=== PATIENT | female | born 1950 | race Two or more races ===

== ENCOUNTER 2020-02-12 19:52 | Emergency (ER) | payer MEDICARE, OTHER ==
--- NOTE | 2020-02-12 19:58 | EDM.PDOC ---
ED HPI GENERAL MEDICAL PROBLEM - General Stated Complaint: POSSIBLE KIDNEY PROBLEM Time Seen by Provider: 02/12/20 19:56 Source of Information: Reports: Patient History Limitations: Reports: No Limitations - History of Present Illness INITIAL COMMENTS - FREE TEXT/NARRATIVE: HISTORY AND PHYSICAL: History of present illness: Patient is a 69-year-old female who presents to the emergency room with complaints of dysuria, low back pain, epigastric pain with eating and drinking x3 days. She states her symptoms started with having epigastric pain after eating and drinking that would last anywhere from 30 minutes to 1 hour. She did notice some dysuria, was trying to increase her fluids but this was causing her further discomfort. Today she started to develop some pain in her low back which she believes is related to a urinary tract infection. Patient denies any fever, chills, headache, change in vision, syncope or near syncope. Denies any chest pain, back pain, shortness of breath or cough. Denies any nausea, vomiting , diarrhea, or constipation. Has not noted any blood in urine or stool. Review of systems: As per history of present illness and below otherwise all systems reviewed and negative. Past medical history: As per history of present illness and as reviewed below otherwise noncontributory. Surgical history: As per history of present illness and as reviewed below otherwise noncontributory. Social history: See social history for further information Family history: As per history of present illness and as reviewed below otherwise noncontributory. Physical exam: General: Well-developed and well-nourished 69-year-old female. Alert and oriented. Nontoxic-appearing and in no acute distress. HEENT: Atraumatic, normocephalic, pupils equal and reactive bilaterally, negative for conjunctival pallor or scleral icterus, mucous membranes moist, trachea midline. No drooling or trismus noted. No meningeal signs. No hot potato voice noted. Lungs: Clear to auscultation, breath sounds equal bilaterally, chest nontender. Heart: S1S2, regular rate and rhythm without overt murmur Abdomen: Soft, nondistended, nontender. Negative for masses or hepatosplenomegaly. Negative for costovertebral tenderness. Pelvis: Stable nontender. Skin: Intact, warm, dry. No lesions or rashes noted. Extremities: Atraumatic, moves all extremities per self without difficulty or deficits, negative for cords or calf pain. Neurovascular unremarkable. Neuro: Awake, alert, oriented. Cranial nerves II through XII unremarkable. Cerebellum unremarkable. Motor and sensory unremarkable throughout. Exam nonfocal. Notes: Patient's epigastric pain is only prevalent after eating. She states she currently does not have any pain or tenderness upon my evaluation. Does sound like she may have a GERD or ulcer developing. Her lab work is otherwise unremarkable. I will prescribe some Carafate and encourage her to follow-up with the general surgeon. Supportive care measures were reviewed and discussed. Voices understanding and is agreeable to plan of care. Denies any further questions or concerns at this time. Diagnostics: CBC, CMP, UA Therapeutics: IV fluid, Pepcid, Carafate Prescription: Carafate Impression: Gastric pain Plan: 1. Start taking a Prilosec or [id number] Reflux medication once daily. You can take the Carafate hour before meals and then again before bedtime. This medication should help with the abdominal pain you are experiencing with eating and drinking. I would like you to follow-up with a general surgeon as you may need this medication continued and or further evaluation for your symptoms. 2. [place] diet over the next 2 to 3 days, advance as tolerated. Make sure you are drinking plenty of fluids to prevent dehydration. He can take Tylenol as needed for pain. 3. Return to the ER as needed and as discussed. Definitive disposition and diagnosis as appropriate pending reevaluation and review of above. epigastric Pain Score (Numeric/FACES): 6 - Related Data Allergies Allergy/AdvReac Type Severity Reaction Status Date / Time No Known Allergies Allergy Verified 02/12/20 20:18 Home Meds: Home Meds Lovastatin 20 mg PO QID 02/12/20 [History] Meloxicam 7.5 mg PO QID 02/12/20 [History] Sucralfate [Carafate] 1 gm PO QIDACANDBED #50 cup 02/12/20 [Rx] metFORMIN [Glucophage] 850 mg PO BIDMEALS 02/12/20 [History] ED ROS GENERAL - Review of Systems Review Of Systems: Comprehensive ROS is negative, except as noted in HPI. ED EXAM, RENAL/ - Physical Exam Exam: See Below (See dictation) Course - Vital Signs Last Recorded V/S: Last Vital Signs Temp 97.0 F 02/12/20 20:15 Pulse 70 02/12/20 20:15 Resp 16 02/12/20 20:15 BP 137/59 L 02/12/20 20:15 Pulse Ox 97 02/12/20 20:15 - Orders/Labs/Meds Orders: Active Orders 24 hr Category Date Time Status Sodium Chloride 0.9% [Normal Saline] 1,000 ml Med 02/12/20 20:07 Active IV STAT Medication Orders Sodium Chloride (Normal Saline) 1,000 mls @ 999 mls/hr IV STAT ONE Stop: 02/12/20 21:07 Last Admin: 02/12/20 20:22 Dose: 999 mls/hr Labs: Laboratory Tests 02/12/20 02/12/20 02/12/20 Range/Units 20:00 20:15 20:15 WBC 11.63 H (4.0-11.0) K/uL RBC 4.19 L (4.30-5.90) M/uL Hgb 13.2 (12.0-16.0) g/dL Hct 39.8 (36.0-46.0) % MCV 95.0 (80.0-98.0) fL MCH 31.5 (27.0-32.0) pg MCHC 33.2 (31.0-37.0) g/dL RDW Std Deviation 50.9 (28.0-62.0) fl RDW Coeff of Dwight 15 (11.0-15.0) % Plt Count 329 (150-400) K/uL MPV 11.00 (7.40-12.00) fL Neut % (Auto) 41.5 L (48.0-80.0) % Lymph % (Auto) 45.7 H (16.0-40.0) % [place] % (Auto) 10.2 (0.0-15.0) % Eos % (Auto) 2.3 (0.0-7.0) % Baso % (Auto) 0.3 (0.0-1.5) % Neut # (Auto) 4.8 (1.4-5.7) K/uL Lymph # (Auto) 5.3 H (0.6-2.4) K/uL [place] # (Auto) 1.2 H (0.0-0.8) K/uL Eos # (Auto) 0.3 (0.0-0.7) K/uL Baso # (Auto) 0.0 (0.0-0.1) K/uL Nucleated RBC % 0.0 /100WBC Nucleated RBCs # 0 K/uL Sodium 131 L (136-145) mmol/L Potassium 4.1 (3.5-5.1) mmol/L Chloride 97 L (98-107) mmol/L Carbon Dioxide 26.7 (21.0-32.0) mmol/L BUN 17 (7.0-18.0) mg/dL Creatinine 0.8 (0.6-1.0) mg/dL Est Cr Clr Drug Dosing 49.01 mL/min Estimated GFR (MDRD) > 60.0 ml/min Glucose 121 H (74-106) mg/dL Calcium 8.5 (8.5-10.1) mg/dL Total Bilirubin 0.1 L (0.2-1.0) mg/dL AST 17 (15-37) IU/L ALT 21 (14-63) IU/L Alkaline Phosphatase 68 (46-116) U/L Total Protein 7.1 (6.4-8.2) g/dL Albumin 3.4 (3.4-5.0) g/dL Globulin 3.7 (2.6-4.0) g/dL Albumin/Globulin Ratio 0.9 (0.9-1.6) Urine Color YELLOW Urine Appearance SLT CLOUDY Urine pH 7.0 (5.0-8.0) Ur Specific [place] 1.015 (1.001-1.035) Urine Protein NEGATIVE (NEGATIVE) mg/dL Urine Glucose (UA) NEGATIVE (NEGATIVE) mg/dL Urine Ketones NEGATIVE (NEGATIVE) mg/dL Urine Occult Blood TRACE-INTACT H (NEGATIVE) Urine Nitrite NEGATIVE (NEGATIVE) Urine Bilirubin NEGATIVE (NEGATIVE) Urine Urobilinogen 0.2 (<2.0) EU/dL Ur Leukocyte Esterase NEGATIVE (NEGATIVE) Urine RBC 0-2 (0-2/HPF) Urine WBC 0-1 (0-5/HPF) Ur Epithelial Cells OCCASIONAL (NONE-FEW) Urine Bacteria RARE (NEGATIVE) Meds: Medications Generic Name Dose Route Start Last Admin Trade Name Freq PRN Reason Stop Dose Admin Sodium Chloride 1,000 mls @ 999 mls/hr 02/12/20 20:07 02/12/20 20:22 Normal Saline IV 02/12/20 21:07 999 mls/hr STAT ONE Administration Discontinued Medications Generic Name Dose Route Start Last Admin Trade Name Maldonado PRN Reason Stop Dose Admin Al Hydroxide/Mg Hydroxide 15 0 ml 02/12/20 20:54 ml/ Metoclopramide HCl 5 mg/ PO 02/12/20 20:55 Lidocaine HCl 5 ml ONETIME ONE Famotidine 20 mg 02/12/20 20:07 02/12/20 20:22 Pepcid IVPUSH 02/12/20 20:08 20 mg ONETIME ONE Administration Departure - Departure Time of Disposition: 21:07 Disposition: Home, Self-Care 01 Clinical Impression: Epigastric pain - Discharge Information Prescriptions: Sucralfate [Carafate] 1 gm PO QIDACANDBED #50 cup Instructions: Abdominal Pain, Adult, [id number] Additional Instructions: The following information is given to patients seen in the emergency department who are being discharged to home. This information is to outline your options for follow-up care. We provide all patients seen in our emergency department with a follow-up referral. The need for follow-up, as well as the timing and circumstances, are variable depending upon the specifics of your emergency department visit. If you don't have a primary care physician on staff, we will provide you with a referral. We always advise you to contact your personal physician following an emergency department visit to inform them of the circumstance of the visit and for follow-up with them and/or the need for any referrals to a consulting specialist. The emergency department will also refer you to a specialist when appropriate. This referral assures that you have the opportunity for follow-up care with a specialist. All of these measure are taken in an effort to provide you with optimal care, which includes your follow-up. Under all circumstances we always encourage you to contact your private physician who remains a resource for coordinating your care. When calling for follow-up care, please make the office aware that this follow-up is from your recent emergency room visit. If for any reason you are refused follow-up, please contact the [facility] Emergency Department at and asked to speak to the emergency department charge nurse. [facility] [address] [place] [address] [facility] [address] [place] [address] 1. Start taking a Prilosec or larz-ctr-gakgakt Reflux medication once daily. You can take the Carafate hour before meals and then again before bedtime. This medication should help with the abdominal pain you are experiencing with eating and drinking. I would like you to follow-up with a general surgeon as you may need this medication continued and or further evaluation for your symptoms. 2. [place] diet over the next 2 to 3 days, advance as tolerated. Make sure you are drinking plenty of fluids to prevent dehydration. He can take Tylenol as needed for pain. 3. Return to the ER as needed and as discussed. Sepsis Event Note - Focused Exam Vital Signs: Vital Signs Temp Pulse Resp BP Pulse Ox 02/12/20 20:15 97.0 F 70 16 137/59 L 97 Date Exam was Performed: 02/12/20 Time Exam was Performed: 21:05 - My Orders Last 24 Hours: My Active Orders 02/12/20 20:07 Sodium Chloride 0.9% [Normal Saline] 1,000 ml IV STAT - Assessment/Plan Last 24 Hours: My Active Orders 02/12/20 20:07 Sodium Chloride 0.9% [Normal Saline] 1,000 ml IV STAT
[2020-02-12] MEDS ORDERED: Sodium Chloride 0.9% 1,000 ML IV ONE (20:07)
[2020-02-12] MEDS ORDERED: Famotidine 20 MG/2 ML SDV IVPUSH ONE (20:07)
[2020-02-12 20:46] LABS: BLOOD UREA NITROGEN,BUN 17 mg/dL (7.0-18.0); CARBON DIOXIDE,CO2 26.7 mmol/L (21.0-32.0); CHLORIDE,CL 97 mmol/L (98-107); GLUCOSE RANDOM 121 mg/dL (74-106); POTASSIUM,K 4.1 mmol/L (3.5-5.1); SODIUM,NA 131 mmol/L (136-145)
[2020-02-12] MEDS ORDERED: Alum Hydrox/Mag Hydrox/Simeth 15 ML, Metoclopramide 5 MG, Lidocaine 2% 5 ML PO ONE ×3 (20:54)
== END 2020-02-12 21:20 | disposition home or self-care (01) ==
LOC: MW.ED 19:52
DX: R10.13 Epigastric pain (principal); Z79.899 Other long term (current) drug therapy
CPT/HCPCS: 36415; 80053; 81001; 85025; 96361; 96374; 99283; A9270; J3490; J7030

== ENCOUNTER 2020-10-03 15:37 | Emergency (ER) | payer MEDICARE, OTHER ==
[2020-10-03] MEDS ORDERED: Sodium Chloride 0.9% 1,000 ML IV ONE (16:33)
[2020-10-03] MEDS ORDERED: Alum Hydrox/Mag Hydrox/Simeth 15 ML, Lidocaine 2% 5 ML PO ONE ×2 (16:33)
[2020-10-03] MEDS ORDERED: Famotidine 20 MG/2 ML SDV IVPUSH ONE (16:33)
--- NOTE | 2020-10-03 16:33 | EDM.PDOC ---
ED HPI GENERAL MEDICAL PROBLEM - General Chief Complaint: Abdominal Pain Stated Complaint: PAIN IN STOMACHE Time Seen by Provider: 10/03/20 15:48 Source of Information: Reports: Patient History Limitations: Reports: No Limitations - History of Present Illness INITIAL COMMENTS - FREE TEXT/NARRATIVE: Patient is a 70-year-old female who presented today for abdominal pain. Patient states he had a burning sensation in her abdomen in the epigastric region that is not radiating. Pain is made worse with eating. Not made the pain better. Patient not any nausea vomiting diarrhea. Patient denies any recent travels or eating new foods. Patient had this pain a few months ago and was seen in the ER for. center abdomen Pain Score (Numeric/FACES): 10 - Related Data Allergies Allergy/AdvReac Type Severity Reaction Status Date / Time No Known Allergies Allergy Verified 02/12/20 20:18 Home Meds: Home Meds Chlorthalidone 1 tab PO DAILY 10/03/20 [History] Esomeprazole [NexIUM] 20 mg PO DAILY 10/03/20 [History] lisinopriL [Prinivil] 10 mg PO DAILY 10/03/20 [History] Past Medical History Cardiovascular History: Reports: High Cholesterol, Hypertension Gastrointestinal History: Reports: GERD Other Gastrointestinal History: gall stones Genitourinary History: Reports: Other (See Below) Other Genitourinary History: HX OF KIDNEY PROBLEMS [place] History: Reports: Endocrine/Metabolic History: Reports: Diabetes, Type I Other Endocrine/Metabolic History: states unsure of type 1 or 2- does not take medication - Infectious Disease History Infectious Disease History: Reports: Chicken Pox, Measles, Mumps - Past Surgical History Female Surgical History: Reports: Tubal Ligation Social & Family History - Family History Family Medical History: No Pertinent Family History - Caffeine Use Caffeine Use: Reports: None - Recreational Drug Use Recreational Drug Use: No ED ROS GENERAL - Review of Systems Review Of Systems: See Below Constitutional: Reports: No Symptoms HEENT: Reports: No Symptoms Respiratory: Reports: No Symptoms Cardiovascular: Reports: No Symptoms Endocrine: Reports: No Symptoms GI/Abdominal: Reports: Abdominal Pain : Reports: No Symptoms Musculoskeletal: Reports: No Symptoms Skin: Reports: No Symptoms Neurological: Reports: No Symptoms Psychiatric: Reports: No Symptoms Hematologic/Lymphatic: Reports: No Symptoms Immunologic: Reports: No Symptoms ED EXAM, GENERAL - Physical Exam Exam: See Below Exam Limited By: No Limitations General Appearance: Alert, WD/WN Respiratory/Chest: No Respiratory Distress, Lungs Clear, Normal Breath Sounds Cardiovascular: Regular Rate, Rhythm GI/Abdominal: Normal Bowel Sounds, Soft, Non-Tender Back Exam: Full Range of Motion Neurological: Alert, Oriented, CN II-XII Intact Course - Vital Signs Last Recorded V/S: Last Vital Signs Temp 97.6 F 10/03/20 16:16 Pulse 77 10/03/20 16:16 Resp 18 10/03/20 16:16 BP 145/38 H 10/03/20 16:16 Pulse Ox 99 10/03/20 16:16 - Orders/Labs/Meds Labs: Laboratory Tests 10/03/20 10/03/20 10/03/20 Range/Units 16:50 16:50 16:50 WBC 9.85 (4.0-11.0) K/uL RBC 4.61 (4.30-5.90) M/uL Hgb 14.3 (12.0-16.0) g/dL Hct 42.9 (36.0-46.0) % MCV 93.1 (80.0-98.0) fL MCH 31.0 (27.0-32.0) pg MCHC 33.3 (31.0-37.0) g/dL RDW Std Deviation 50.3 (28.0-62.0) fl RDW Coeff of Dwight 15 (11.0-15.0) % Plt Count 312 (150-400) K/uL MPV 11.10 (7.40-12.00) fL Neut % (Auto) 54.0 (48.0-80.0) % Lymph % (Auto) 35.8 (16.0-40.0) % [place] % (Auto) 8.1 (0.0-15.0) % Eos % (Auto) 1.9 (0.0-7.0) % Baso % (Auto) 0.2 (0.0-1.5) % Neut # (Auto) 5.3 (1.4-5.7) K/uL Lymph # (Auto) 3.5 H (0.6-2.4) K/uL [place] # (Auto) 0.8 (0.0-0.8) K/uL Eos # (Auto) 0.2 (0.0-0.7) K/uL Baso # (Auto) 0.0 (0.0-0.1) K/uL Nucleated RBC % 0.0 /100WBC Nucleated RBCs # 0 K/uL Lactate 1.2 (0.20-2.00) mmol/L Sodium 137 (136-145) mmol/L Potassium 3.1 L (3.5-5.1) mmol/L Chloride 100 (98-107) mmol/L Carbon Dioxide 25.1 (21.0-32.0) mmol/L BUN 20 H (7.0-18.0) mg/dL Creatinine 0.8 (0.6-1.0) mg/dL Est Cr Clr Drug Dosing 48.34 mL/min Estimated GFR (MDRD) > 60.0 ml/min Glucose 114 H (74-106) mg/dL Calcium 9.7 (8.5-10.1) mg/dL Phosphorus 3.5 (2.6-4.7) mg/dL Magnesium 1.8 (1.8-2.4) mg/dL Total Bilirubin 0.2 (0.2-1.0) mg/dL AST 19 (15-37) IU/L ALT 22 (14-63) IU/L Alkaline Phosphatase 71 (46-116) U/L Total Protein 8.0 (6.4-8.2) g/dL Albumin 3.8 (3.4-5.0) g/dL Globulin 4.2 H (2.6-4.0) g/dL Albumin/Globulin Ratio 0.9 (0.9-1.6) Lipase 164 (73-393) U/L Meds: Medications Discontinued Medications Generic Name Dose Route Start Last Admin Trade Name Freq PRN Reason Stop Dose Admin Al Hydroxide/Mg Hydroxide 15 0 ml 10/03/20 16:33 10/03/20 16:47 ml/ Lidocaine HCl 5 ml PO 10/03/20 16:34 1 each ONETIME ONE Administration Famotidine 20 mg 10/03/20 16:33 10/03/20 16:47 Pepcid IVPUSH 10/03/20 16:34 20 mg ONETIME ONE Administration Sodium Chloride 1,000 mls @ 999 mls/hr 10/03/20 16:33 10/03/20 16:47 Normal Saline IV 10/03/20 17:33 999 mls/hr .BOLUS ONE Administration Iopamidol 100 ml 10/03/20 17:59 Isovue Multipack-370 (76%) IVPUSH 10/03/20 18:00 ONETIME STA Departure - Departure Time of Disposition: 18:56 Disposition: Home, Self-Care 01 Condition: Good Clinical Impression: Cholelithiases - Discharge Information *PRESCRIPTION DRUG MONITORING PROGRAM REVIEWED*: Not Applicable *COPY OF PRESCRIPTION DRUG MONITORING REPORT IN PATIENT LUC: Not Applicable Instructions: Cholelithiasis, [id number], Gallbladder Eating Plan Referrals: Alyssa Zurita [facility] [Primary Care Provider] - Forms: ED Department Discharge Additional Instructions: The following information is given to patients seen in the emergency department who are being discharged to home. This information is to outline your options for follow-up care. We provide all patients seen in our emergency department with a follow-up referral. The need for follow-up, as well as the timing and circumstances, are variable depending upon the specifics of your emergency department visit. If you don't have a primary care physician on staff, we will provide you with a referral. We always advise you to contact your personal physician following an emergency department visit to inform them of the circumstance of the visit and for follow-up with them and/or the need for any referrals to a consulting specialist. The emergency department will also refer you to a specialist when appropriate. This referral assures that you have the opportunity for follow-up care with a specialist. All of these measure are taken in an effort to provide you with optimal care, which includes your follow-up. Under all circumstances we always encourage you to contact your private physician who remains a resource for coordinating your care. When calling for follow-up care, please make the office aware that this follow-up is from your recent emergency room visit. If for any reason you are refused follow-up, please contact the [facility] Emergency Department at and asked to speak to the emergency department charge nurse. Please follow up with your primary care physician. If you do not have a primary care physician, see below: [facility] - General Surgery Professional Building [address] [place] [address], [address] [place] [address] Follow-up with general surgery. Please refer to the handout for possible foods to eat to help out in pain control. We will refer you to general surgery if you have any increased pain unable to eat or drink please return to the ED Sepsis Event Note (ED) - Evaluation Sepsis Screening Result: No Definite Risk - Focused Exam Vital Signs: Vital Signs Temp Pulse Resp BP Pulse Ox 10/03/20 16:16 97.6 F 77 18 145/38 H 99 - Assessment/Plan Assessment:: Pt is a 70-year-old female today for abdominal pain. Patient has some epigastric tenderness will obtain labs and likely CT and reassess.
[2020-10-03 17:30] LABS: BLOOD UREA NITROGEN,BUN 20 mg/dL (7.0-18.0); CARBON DIOXIDE,CO2 25.1 mmol/L (21.0-32.0); CHLORIDE,CL 100 mmol/L (98-107); GLUCOSE RANDOM 114 mg/dL (74-106); LIPASE 164 U/L (73-393); POTASSIUM,K 3.1 mmol/L (3.5-5.1); SODIUM,NA 137 mmol/L (136-145)
[2020-10-03] MEDS ORDERED: Iopamidol 755 MG/ML 500 ML Multipack Bottle IVPUSH STA (17:59)
--- NOTE | 2020-10-03 18:47 | CT ---
INDICATION: Epigastric pain TECHNIQUE: Axial images were obtained from the diaphragm to the pubic symphysis. Reformats were obtained in the coronal and sagittal plane. IV Contrast: 100 cc Isovue 370 Oral Contrast: None COMPARISON: Abdomen and pelvis CT 02/22/2020 FINDINGS: Lower chest: Respiratory motion with areas of discoid atelectasis lung bases. Liver: Normal in contour with irregular area of enhancement within the right lobe of the liver which is indeterminate due to the single phase of enhancement as well as patient motion although grossly similar to the prior exam. Gallbladder and bile ducts: Mild gallbladder wall hyperenhancement, especially near the fundus. Spleen: Unremarkable. Normal in size without mass. Pancreas: Unremarkable. No mass or inflammation. Adrenal glands: Unremarkable. No nodules. Kidneys: Symmetric renal enhancement without hydronephrosis. Exophytic right renal cyst measuring 15 millimeters with other subcentimeter hypodense lesions which are too small for characterization. Left renal scarring. Vasculature: Atherosclerosis without abdominal aortic aneurysm. GI tract: No dilated loops of large or small intestine. Appendix unremarkable. Pelvis: Small amount of air within the bladder lumen. Bones: Degenerative disc disease lumbar spine. IMPRESSION: 1. No dilated bowel or localized inflammation. 2. No definite cholelithiasis seen by CT, however note is made of some hyperenhancement of the gallbladder. If there is pain localizing to this region, ultrasound may have improved characterization. 3. Indeterminate lesion within the right lobe of the liver, poorly defined secondary to some patient motion. Considering the motion, this is probably similar to the May examination. 4. Air within the bladder lumen. This can be seen with recent instrumentation or infection. 5. Other incidental findings as detailed above. Please note that all CT scans at this facility use dose modulation, iterative reconstruction, and/or weight-based dosing when appropriate to reduce radiation dose to as low as reasonably achievable. Dictated by Yash Lee MD @ Oct 03 2020 6:31PM Signed by Dr. Yash Lee @ Oct 03 2020 6:45PM
== END 2020-10-03 19:12 | disposition home or self-care (01) ==
LOC: MW.ED 15:37
DX: K80.20 Calculus of gallbladder without cholecystitis without obstruction (principal); I10 Essential (primary) hypertension; K21.9 Gastro-esophageal reflux disease without esophagitis; E10.9 Type 1 diabetes mellitus without complications; Z79.899 Other long term (current) drug therapy
CPT/HCPCS: 36415; 74177; 80053; 83605; 83690; 83735; 84100; 85025; 96374; 99284; A9270; J3490; J7030; 99283

== ENCOUNTER 2020-10-08 04:06 | Emergency (ER) | payer MEDICARE, OTHER ==
[2020-10-08] MEDS ORDERED: Pantoprazole 40 MG in Sodium Chloride 0.9% 10 ML IV ONE (04:36)
[2020-10-08] MEDS ORDERED: Sodium Chloride 0.9% 1,000 ML IV ONE (04:36)
[2020-10-08] MEDS ORDERED: Sodium Chloride 0.9% 2.5 ML Syringe FLUSH PRN (04:36)
[2020-10-08] MEDS ORDERED: Ketorolac 15 MG/ML SDV IVPUSH ONE (04:36)
[2020-10-08] MEDS ORDERED: Sodium Chloride 0.9% 10 ML Syringe FLUSH PRN (04:36)
[2020-10-08] MEDS ORDERED: Ondansetron 4 MG/2 ML SDV IVPUSH ONE (04:36)
[2020-10-08] MEDS ORDERED: HYDROmorphone 2 MG/ML Syringe IVPUSH ONE (04:39)
[2020-10-08] MEDS ORDERED: HYDROmorphone 2 MG/ML Syringe ONE (04:48)
[2020-10-08] MEDS ORDERED: Pantoprazole 40 MG Vial ONE (04:49)
[2020-10-08] MEDS ORDERED: Ondansetron 4 MG/2 ML SDV ONE (04:50)
[2020-10-08] MEDS ORDERED: Ketorolac 15 MG/ML SDV ONE (04:50)
[2020-10-08 05:23] LABS: BLOOD UREA NITROGEN,BUN 19 mg/dL (7.0-18.0); CARBON DIOXIDE,CO2 28.7 mmol/L (21.0-32.0); CHLORIDE,CL 99 mmol/L (98-107); GLUCOSE RANDOM 127 mg/dL (74-106); LIPASE 296 U/L (73-393); SODIUM,NA 138 mmol/L (136-145)
--- NOTE | 2020-10-08 06:12 | EDM.PDOC ---
ED HPI GENERAL MEDICAL PROBLEM - General Chief Complaint: Abdominal Pain Stated Complaint: GALL BLADDER PAIN Time Seen by Provider: 10/08/20 04:34 - History of Present Illness INITIAL COMMENTS - FREE TEXT/NARRATIVE: HISTORY AND PHYSICAL: History of present illness: This is a 70-year-old female with history significant for hypertension who presents ER today complaining of midepigastric and right upper quadrant abdominal pain that started approximately 4 AM. Patient reports that for dinner tonight she ate a chicken sandwich approximately at 5 PM without a difficulty. Patient reports she went to bed without any discomfort or pain and at approximately 4 the morning she was having discomfort in her midepigastric and right upper quadrant. Patient denies any recent fevers, shakes, chills, vomiting, diarrhea. Patient denies any dysuria, frequency, urgency, chest pain, shortness of breath. Review of systems: As per history of present illness and below otherwise all systems reviewed and negative. Past medical history: As per history of present illness and as reviewed below otherwise noncontributory. Surgical history: As per history of present illness and as reviewed below otherwise noncontributory. Social history: No reported history of drug or alcohol abuse. Family history: As per history of present illness and as reviewed below otherwise noncontributory. Physical exam: Constitutional: Patient is oriented to person, place, and time. Appears well- developed and well-nourished. No distress. HEENT: Moist mucous membranes, no jaundice Head: Normocephalic and atraumatic Eyes: Right eye exhibits no discharge. Left eye exhibits no discharge. No scleral icterus Neck: Normal range of motion. No tracheal deviation present. Cardiovascular: Normal rate and regular rhythm. Pulmonary: Effort normal, no respiratory distress. Abd: Soft, nondistended, no rebound/guarding, no psoas or obturator signs, no tenderness at Mcberney's point, no Simpson's sign. Pt does not present with an exam that would be consistent with an acute surgical abdomen at this time, tenderness palpation midepigastric area. Musculoskeletal: Normal range of motion Neurologic: Alert and oriented to person, place and time. Skin: [place], warm and dry. Psychiatric: Normal mood and affect. Behavior is normal. Judgment and thought content normal. Nursing note and vital signs have been reviewed This patient was seen and evaluated during the 2019 SARS-CoV-2 novel coronavirus pandemic period. Community viral transmission is ongoing at time of this encounter and the emergency department is operating under pandemic response procedures. Diagnostics: CBC, CMP, lipase all within normal limits except for slightly elevated WBC count. Therapeutics: Toradol, Zofran, Dilaudid 0.5 mg IV NSS x1 L Assessment and plan: This is a 62-year-old female with a history significant for hypertension who presents to the ER today complaining of similar pain from 2 days ago. Patient reports she was seen here 2 days ago for abdominal pain and was told that she had gallbladder problems and has an appointment on Friday to see Dr. Miguel. Patient presents ER today secondary to recurrence of the pain for the morning. Patient's ER work-up is been unremarkable. Patient's white count was elevated however after pain meds patient is currently pain-free and has absolutely no discomfort to palpation to her abdomen. Patient has been given Toradol Zofran and Dilaudid here in the ED and is currently pain-free. Patient feels very comfortable with being discharged at this time and following up as scheduled. Have discussed with the patient dietary restrictions for gallbladder disease. Reassessment at the time of disposition demonstrates that the patient is in no acute distress. The patient has remained stable throughout the entire ED visit and is without objective evidence for acute process requiring urgent intervention or hospitalization. The patient is stable for discharge, counseling is provided as documented above, discussed symptomatic treatment and specific conditions for return. I have spoken with the patient/caregiver and discussed todays findings, in addition to providing specific details for the plan of care. Questions are answered and there is agreement with the plan. October 08, 2020 7:20 PM: Phone call follow-up made. Patient reports she is feeling better. Has appointment tomorrow with her surgeon. Definitive disposition and diagnosis as appropriate pending reevaluation and review of above. abdominal pain Pain Score (Numeric/FACES): 10 - Related Data Allergies Allergy/AdvReac Type Severity Reaction Status Date / Time No Known Allergies Allergy Verified 10/08/20 04:16 Home Meds: Home Meds Chlorthalidone 1 tab PO DAILY 10/03/20 [History] Esomeprazole [NexIUM] 20 mg PO DAILY 10/03/20 [History] lisinopriL [Prinivil] 10 mg PO DAILY 10/03/20 [History] Past Medical History Cardiovascular History: Reports: High Cholesterol, Hypertension Gastrointestinal History: Reports: GERD Other Gastrointestinal History: gall stones Genitourinary History: Reports: Other (See Below) Other Genitourinary History: HX 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: Endocrine/Metabolic History: Reports: Diabetes, Type I Other Endocrine/Metabolic History: states unsure of type 1 or 2- does not take medication - Infectious Disease History Infectious Disease History: Reports: Chicken Pox, Measles, Mumps - Past Surgical History Female Surgical History: Reports: Tubal Ligation Social & Family History - Family History Family Medical History: No Pertinent Family History - Tobacco Use Tobacco Use Status *Q: Current Every Day Tobacco User Years of Tobacco use: 30 Packs/Tins Daily: 1 - Caffeine Use Caffeine Use: Reports: Coffee - Recreational Drug Use Recreational Drug Use: No ED ROS GENERAL - Review of Systems Review Of Systems: See Below ED EXAM, GENERAL - Physical Exam Exam: See Below Course - Vital Signs Last Recorded V/S: Last Vital Signs Temp 96.9 F 10/08/20 06:22 Pulse 67 10/08/20 06:22 Resp 17 10/08/20 06:22 BP 135/47 L 10/08/20 06:22 Pulse Ox 97 10/08/20 06:22 - Orders/Labs/Meds Orders: Active Orders 24 hr Category Date Time Status Saline Lock Insert [OM.PC] Stat Oth 10/08/20 04:36 Ordered Labs: Laboratory Tests 10/08/20 10/08/20 10/08/20 Range/Units 04:45 04:56 04:56 WBC 16.89 H (4.0-11.0) K/uL RBC 4.54 (4.30-5.90) M/uL Hgb 14.4 (12.0-16.0) g/dL Hct 41.6 (36.0-46.0) % MCV 91.6 (80.0-98.0) fL MCH 31.7 (27.0-32.0) pg MCHC 34.6 (31.0-37.0) g/dL RDW Std Deviation 48.7 (28.0-62.0) fl RDW Coeff of [place]ight 15 (11.0-15.0) % Plt Count 328 (150-400) K/uL MPV 11.10 (7.40-12.00) fL Neut % (Auto) 72.3 (48.0-80.0) % Lymph % (Auto) 19.7 (16.0-40.0) % [place] % (Auto) 7.3 (0.0-15.0) % Eos % (Auto) 0.5 (0.0-7.0) % Baso % (Auto) 0.2 (0.0-1.5) % Neut # (Auto) 12.2 H (1.4-5.7) K/uL Lymph # (Auto) 3.3 H (0.6-2.4) K/uL [place] # (Auto) 1.2 H (0.0-0.8) K/uL Eos # (Auto) 0.1 (0.0-0.7) K/uL Baso # (Auto) 0.0 (0.0-0.1) K/uL Nucleated RBC % 0.0 /100WBC Nucleated RBCs # 0 K/uL Sodium 138 (136-145) mmol/L Potassium 3.0 L (3.5-5.1) mmol/L Chloride 99 (98-107) mmol/L Carbon Dioxide 28.7 (21.0-32.0) mmol/L BUN 19 H (7.0-18.0) mg/dL Creatinine 0.8 (0.6-1.0) mg/dL Est Cr Clr Drug Dosing 48.34 mL/min Estimated GFR (MDRD) > 60.0 ml/min Glucose 127 H (74-106) mg/dL Calcium 9.5 (8.5-10.1) mg/dL Total Bilirubin 0.3 (0.2-1.0) mg/dL AST 17 (15-37) IU/L ALT 22 (14-63) IU/L Alkaline Phosphatase 69 (46-116) U/L Total Protein 7.7 (6.4-8.2) g/dL Albumin 3.7 (3.4-5.0) g/dL Globulin 4.0 (2.6-4.0) g/dL Albumin/Globulin Ratio 0.9 (0.9-1.6) Lipase 296 (73-393) U/L Urine Color YELLOW Urine Appearance CLEAR Urine pH 7.0 (5.0-8.0) Ur Specific [place] 1.020 (1.001-1.035) Urine Protein NEGATIVE (NEGATIVE) mg/dL Urine Glucose (UA) NEGATIVE (NEGATIVE) mg/dL Urine Ketones NEGATIVE (NEGATIVE) mg/dL Urine Occult Blood TRACE-INTACT H (NEGATIVE) Urine Nitrite NEGATIVE (NEGATIVE) Urine Bilirubin NEGATIVE (NEGATIVE) Urine Urobilinogen 0.2 (<2.0) EU/dL Ur Leukocyte Esterase NEGATIVE (NEGATIVE) Urine RBC 0-2 (0-2/HPF) Urine WBC 0-1 (0-5/HPF) Ur Epithelial Cells FEW (NONE-FEW) Urine Bacteria RARE (NEGATIVE) Meds: Medications Discontinued Medications Generic Name Dose Route Start Last Admin Trade Name Freq PRN Reason Stop Dose Admin Hydromorphone HCl 0.5 mg 10/08/20 04:39 10/08/20 05:01 Dilaudid IVPUSH 10/08/20 04:40 0.5 mg ONETIME ONE Administration Hydromorphone HCl Confirm 10/08/20 04:48 10/08/20 05:01 Dilaudid Administered 10/08/20 04:49 Not Given Dose 2 mg .ROUTE .STK-MED ONE Pantoprazole Sodium 40 mg/ 10 mls @ 300 mls/hr 10/08/20 04:36 10/08/20 05:00 Sodium Chloride IV 10/08/20 04:37 300 mls/hr NOW ONE Administration Sodium Chloride 1,000 mls @ 999 mls/hr 10/08/20 04:36 10/08/20 05:00 Normal Saline IV 10/08/20 05:36 999 mls/hr .Bolus ONE Administration Ketorolac Tromethamine 15 mg 10/08/20 04:36 10/08/20 05:00 Toradol IVPUSH 10/08/20 04:37 15 mg ONETIME ONE Administration Ketorolac Tromethamine Confirm 10/08/20 04:50 10/08/20 05:02 Toradol Administered 10/08/20 04:51 Not Given Dose 15 mg .ROUTE .STK-MED ONE Ondansetron HCl 4 mg 10/08/20 04:36 10/08/20 05:01 Zofran IVPUSH 10/08/20 04:37 4 mg ONETIME ONE Administration Ondansetron HCl Confirm 10/08/20 04:50 10/08/20 05:02 Zofran Administered 10/08/20 04:51 Not Given Dose 4 mg .ROUTE .STK-MED ONE Pantoprazole Sodium Confirm 10/08/20 04:49 10/08/20 05:02 Protonix Iv Administered 10/08/20 04:50 Not Given Dose 40 mg .ROUTE .STK-MED ONE Sodium Chloride 10 ml 10/08/20 04:36 10/08/20 05:02 Saline Flush FLUSH 10 ml ASDIRECTED PRN Administration Keep Vein Open Sodium Chloride 2.5 ml 10/08/20 04:36 10/08/20 05:02 Saline Flush FLUSH 2.5 ml ASDIRECTED PRN Administration Keep Vein Open Departure - Departure Time of Disposition: 06:11 Disposition: Home, Self-Care 01 Condition: Good Clinical Impression: Biliary colic symptom Abdominal pain Qualifiers: Abdominal location: right upper quadrant Qualified Code(s): R10.11 - Right upper quadrant pain - Discharge Information Instructions: Biliary Colic, Adult, Abdominal Pain, Adult, [id number] Referrals: Alyssa Zurita [employer] MECH[employer]ICAL TECHNICIAN [Primary Care Provider] - Forms: ED Department Discharge Additional Instructions: You were seen and evaluated in the ER today secondary to pain in your upper abdomen. The work-up in the ER reveals no significant abnormalities in your blood tests. Please keep your appointment with your surgeon on Friday for further evaluation of possible gallbladder as a cause of your discomfort. The following information is given to patients seen in the emergency department who are being discharged to home. This information is to outline your options for follow-up care. We provide all patients seen in our emergency department with a follow-up referral. The need for follow-up, as well as the timing and circumstances, are variable depending upon the specifics of your emergency department visit. If you don't have a primary care physician on staff, we will provide you with a referral. We always advise you to contact your personal physician following an emergency department visit to inform them of the circumstance of the visit and for follow-up with them and/or the need for any referrals to a consulting specialist. The emergency department will also refer you to a specialist when appropriate. This referral assures that you have the opportunity for follow-up care with a specialist. All of these measure are taken in an effort to provide you with optimal care, which includes your follow-up. Under all circumstances we always encourage you to contact your private physician who remains a resource for coordinating your care. When calling for follow-up care, please make the office aware that this follow-up is from your recent emergency room visit. If for any reason you are refused follow-up, please contact the [facility] Emergency Department at and asked to speak to the emergency department charge nurse. [facility] - Primary Care [address] [place] [id number] [address] [address] Sepsis Event Note (ED) - Evaluation Sepsis Screening Result: No Definite Risk - My Orders Last 24 Hours: My Active Orders 10/08/20 04:36 Saline Lock Insert [OM.PC] Stat - Assessment/Plan Last 24 Hours: My Active Orders 10/08/20 04:36 Saline Lock Insert [OM.PC] Stat
== END 2020-10-08 06:24 | disposition home or self-care (01) ==
LOC: MW.ED 04:06
DX: R10.11 Right upper quadrant pain (principal); I10 Essential (primary) hypertension; E10.9 Type 1 diabetes mellitus without complications; K21.9 Gastro-esophageal reflux disease without esophagitis; F17.210 Nicotine dependence, cigarettes, uncomplicated; Z79.899 Other long term (current) drug therapy
CPT/HCPCS: 36415; 80053; 81001; 83690; 85025; 96374; 96375; 99284; C9113; J1170; J1885; J2405; J7030

== ENCOUNTER 2020-10-26 18:53 | Emergency (ER) | payer MEDICARE ==
[2020-10-26] MEDS ORDERED: Morphine 4 MG/ML Syringe IVPUSH ONE ×2 (19:11→22:11)
[2020-10-26 19:44] LABS: BLOOD UREA NITROGEN,BUN 10 mg/dL (7.0-18.0); CARBON DIOXIDE,CO2 28.8 mmol/L (21.0-32.0); CHLORIDE,CL 96 mmol/L (98-107); GLUCOSE RANDOM 150 mg/dL (74-106); POTASSIUM,K 2.7 mmol/L (3.5-5.1); SODIUM,NA 134 mmol/L (136-145)
--- NOTE | 2020-10-26 19:58 | EDM.PDOC ---
ED HPI GENERAL MEDICAL PROBLEM - General Chief Complaint: Abdominal Pain Stated Complaint: ABDOMINAL PAIN Time Seen by Provider: 10/26/20 19:05 - History of Present Illness INITIAL COMMENTS - FREE TEXT/NARRATIVE: CHIEF COMPLAINT(S): Abdominal pain HISTORY OF PRESENT ILLNESS: This is a 70-year-old woman with a past medical history of symptomatic cholelithiasis and possible peptic ulcer disease versus gastritis who comes to the emergency department with a chief complaint of abdominal pain. The patient states that she was recently seen and is undergoing work-up outpatient for her symptoms. She states that starting approximately 4 hours prior to arrival she started to experience abdominal pain which is located in the epigastric, left upper quadrant and right upper quadrant. She states that it got worse. She currently rates her pain as 9 out of 10 and constant. She describes the pain as sharp. She denies any associated nausea or vomiting, fever, or chills. She states that she has been taking a laxative and has had normal bowel movements today. She states that the pain does radiate to her back. She has not yet tried any pain medication. She denies any associated aggravating symptoms or relieving symptoms. She does not know if it worsens with eating. She states that she has been taking her ulcer pills which do not seem to be helping. She states that she did follow-up with Dr. Root who recommended getting a cardiac clearance and a EGD prior to surgery for symptomatic cholelithiasis. She states that she did have the echocardiogram done and that she does have a EGD scheduled on November 06-, she does not recall the specific date. REVIEW OF SYSTEMS: Constitutional: Denies fever, chills. Eyes: Denies eye pain Ears, Nose, Mouth, & Throat: Denies earache Cardiovascular: Denies chest pain Respiratory: Denies shortness of breath Gastrointestinal: Positive for abdominal pain in the upper quadrants. Denies nausea, vomiting, diarrhea, hematochezia, melena or hematemesis. Genitourinary: Denies hematuria Skin:Denies a rash Neurological: Denies blurred vision Psychiatric: Denies depression PAST MEDICAL HISTORY: As per history of present illness and as reviewed below otherwise noncontributory. SURGICAL HISTORY: As per history of present illness and as reviewed below otherwise noncontributory. SOCIAL HISTORY: As per history of present illness and as reviewed below otherwise noncontributory. FAMILY HISTORY: As per history of present illness and as reviewed below otherwise noncontributory. EXAMINATION OF ORGAN SYSTEMS/BODY AREAS: Constitutional: Blood pressure is 162/64, heart rate 75, respiratory rate 21 with the oxygen saturation being 96% on room air. Temperature 36.7 General: Middle-age woman who appears to be in a moderate amount of pain. Psychiatric: Appropriate mood and affect. Eyes: No scleral icterus or conjunctival erythema ENMT: Moist mucous membranes. No pharyngeal erythema Cardiovascular: Regular, rate, and rhythm. No gallops, murmurs, or rubs. Bilateral upper extremity pulses symmetric and intact. No peripheral edema. No JVD. Respiratory: Lungs clear to auscultation bilaterally. No wheezes, rales, or rhonchi. Gastrointestinal: Soft, nondistended, tenderness to palpation more in the epigastric and left upper quadrant. Mild right upper quadrant pain. No rebound or guarding. Negative Simpson's and McBurney's. Normoactive bowel sounds Genitourinary: No suprapubic tenderness Musculoskeletal: Normal range of motion. Skin: No lesions or abrasions. Neurological: Alert, GCS 15 MEDICAL DECISION MAKING AND COURSE IN THE ED WITH INTERPRETATION/REVIEW OF DIAGNOSTIC STUDIES: This is a 70-year-old woman with a past medical history of symptomatic cholelithiasis and possible peptic ulcer disease versus gastritis who comes to the emergency department with recurring epigastric and left upper quadrant pain with some mild right upper quadrant pain. Given her history of symptomatic cholelithiasis will obtain a right upper quadrant ultrasound to evaluate for cholecystitis. Will obtain labs including CBC, coags, CMP and lipase. We will provide the patient with morphine IV for pain relief and also provide her with a GI cocktail and viscous lidocaine for possible peptic ulcer versus gastritis. Laboratory: CBC is unremarkable. Hemoglobin is stable. Coags are within normal limits. CMP reveals hyponatremia at 134, hypokalemia at 2.7, hypochloremia at 96, hyperglycemia at 150 otherwise unremarkable. Lipase is normal. On reevaluation the patient's symptoms had improved after morphine administration. I did discuss there at this time that we would be providing her with potassium supplementation given her hypokalemia. She was amenable to this plan. The radiological images were viewed by myself along with reading the report from the radiologist. Abdomen ultrasound reveals cholelithiasis. No evidence of cholecystitis. After potassium supplementation the patient had exacerbation of her pain. Therefore we provided the patient with 4 mg of IV morphine. At this time I did discuss with patient that I do believe her symptoms are likely secondary to her peptic ulcer disease. I discussed the importance of keeping her appointment for her EGD given that it is causing her symptoms. I discussed that she should continue to take Protonix and that we would provide her with a prescription for Maalox to be used as needed for exacerbating pain. I gave her diet restrictions. Repeat potassium was 3.3. At this time given that the patient's pain had improved after second dose of morphine I discussed that she be stable for discharge. She is to return for any new or worsening symptoms such as GI bleed worsening abdominal pain or fever. DISPOSITION: The patient was discharged home in stable condition. The patient will follow up with surgery for EGD CONDITION: Fair PROCEDURES: None FINAL IMPRESSION(S)/DIAGNOSES: 1. Acute epigastric abdominal pain secondary to peptic ulcer disease 2. Cholelithiasis Sivakumar Neri M.D. abdominal Pain Score (Numeric/FACES): 9 - Related Data Allergies Allergy/AdvReac Type Severity Reaction Status Date / Time No Known Allergies Allergy Verified 10/26/20 19:02 Home Meds: Home Meds Chlorthalidone 1 tab PO DAILY 10/03/20 [History] lisinopriL [Prinivil] 10 mg PO DAILY 10/03/20 [History] Pantoprazole [ProTONIX] 40 mg PO DAILY 10/26/20 [History] Sucralfate [Carafate] 1 gm PO DAILY 10/26/20 [History] Mag Hydrox/Aluminum Hyd/Simeth [Maalox Maximum Strength Susp] 20 ml PO Q6HR PRN #[id number] oral.susp 10/27/20 [Rx] Past Medical History Cardiovascular History: Reports: High Cholesterol, Hypertension Gastrointestinal History: Reports: GERD Other Gastrointestinal History: gall stones Genitourinary History: Reports: Other (See Below) Other Genitourinary History: HX OF 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: Endocrine/Metabolic History: Reports: Diabetes, Type I Other Endocrine/Metabolic History: states unsure of type 1 or 2- does not take medication - Infectious Disease History Infectious Disease History: Reports: Chicken Pox, Measles, Mumps - Past Surgical History Female Surgical History: Reports: Tubal Ligation Social & Family History - Family History Family Medical History: No Pertinent Family History - Tobacco Use Tobacco Use Status *Q: Current Every Day Tobacco User Years of Tobacco use: 20 Packs/Tins Daily: 1 - Caffeine Use Caffeine Use: Reports: Coffee - Recreational Drug Use Recreational Drug Use: No ED ROS ENT - Review of Systems Review Of Systems: See Below ED EXAM, ENT - Physical Exam Exam: See Below Course - Vital Signs Last Recorded V/S: Last Vital Signs Temp 36.7 C 10/26/20 19:04 Pulse 59 L 10/27/20 02:10 Resp 16 10/27/20 02:10 BP 160/49 H 10/27/20 02:10 Pulse Ox 99 10/27/20 02:10 - Orders/Labs/Meds Labs: Laboratory Tests 10/26/20 10/26/20 10/26/20 Range/Units 19:10 19:10 19:10 WBC 10.49 (4.0-11.0) K/uL RBC 4.56 (4.30-5.90) M/uL Hgb 14.1 (12.0-16.0) g/dL Hct 41.3 (36.0-46.0) % MCV 90.6 (80.0-98.0) fL MCH 30.9 (27.0-32.0) pg MCHC 34.1 (31.0-37.0) g/dL RDW Std Deviation 46.6 (28.0-62.0) fl RDW Coeff of Dwight 14 (11.0-15.0) % Plt Count 322 (150-400) K/uL MPV 10.90 (7.40-12.00) fL Neut % (Auto) 53.1 (48.0-80.0) % Lymph % (Auto) 40.1 H (16.0-40.0) % Roane % (Auto) 5.5 (0.0-15.0) % Eos % (Auto) 1.1 (0.0-7.0) % Baso % (Auto) 0.2 (0.0-1.5) % Neut # (Auto) 5.6 (1.4-5.7) K/uL Lymph # (Auto) 4.2 H (0.6-2.4) K/uL Roane # (Auto) 0.6 (0.0-0.8) K/uL Eos # (Auto) 0.1 (0.0-0.7) K/uL Baso # (Auto) 0.0 (0.0-0.1) K/uL Nucleated RBC % 0.0 /100WBC Nucleated RBCs # 0 K/uL INR 1.01 Sodium 134 L (136-145) mmol/L Potassium 2.7 L (3.5-5.1) mmol/L Chloride 96 L (98-107) mmol/L Carbon Dioxide 28.8 (21.0-32.0) mmol/L BUN 10 (7.0-18.0) mg/dL Creatinine 0.7 (0.6-1.0) mg/dL Est Cr Clr Drug Dosing 55.25 mL/min Estimated GFR (MDRD) > 60.0 ml/min Glucose 150 H (74-106) mg/dL Calcium 9.5 (8.5-10.1) mg/dL Total Bilirubin 0.2 (0.2-1.0) mg/dL AST 14 L (15-37) IU/L ALT 21 (14-63) IU/L Alkaline Phosphatase 78 (46-116) U/L Total Protein 7.6 (6.4-8.2) g/dL Albumin 3.6 (3.4-5.0) g/dL Globulin 4.0 (2.6-4.0) g/dL Albumin/Globulin Ratio 0.9 (0.9-1.6) Lipase (73-393) U/L Blood Type Antibody Screen 10/26/20 10/26/20 10/26/20 Range/Units 19:10 19:26 23:45 WBC (4.0-11.0) K/uL RBC (4.30-5.90) M/uL Hgb (12.0-16.0) g/dL Hct (36.0-46.0) % MCV (80.0-98.0) fL MCH (27.0-32.0) pg MCHC (31.0-37.0) g/dL RDW Std Deviation (28.0-62.0) fl RDW Coeff of Dwight (11.0-15.0) % Plt Count (150-400) K/uL MPV (7.40-12.00) fL Neut % (Auto) (48.0-80.0) % Lymph % (Auto) (16.0-40.0) % Roane % (Auto) (0.0-15.0) % Eos % (Auto) (0.0-7.0) % Baso % (Auto) (0.0-1.5) % Neut # (Auto) (1.4-5.7) K/uL Lymph # (Auto) (0.6-2.4) K/uL Roane # (Auto) (0.0-0.8) K/uL Eos # (Auto) (0.0-0.7) K/uL Baso # (Auto) (0.0-0.1) K/uL Nucleated RBC % /100WBC Nucleated RBCs # K/uL INR Sodium (136-145) mmol/L Potassium 3.3 L (3.5-5.1) mmol/L Chloride (98-107) mmol/L Carbon Dioxide (21.0-32.0) mmol/L BUN (7.0-18.0) mg/dL Creatinine (0.6-1.0) mg/dL Est Cr Clr Drug Dosing mL/min Estimated GFR (MDRD) ml/min Glucose (74-106) mg/dL Calcium (8.5-10.1) mg/dL Total Bilirubin (0.2-1.0) mg/dL AST (15-37) IU/L ALT (14-63) IU/L Alkaline Phosphatase (46-116) U/L Total Protein (6.4-8.2) g/dL Albumin (3.4-5.0) g/dL Globulin (2.6-4.0) g/dL Albumin/Globulin Ratio (0.9-1.6) Lipase 205 (73-393) U/L Blood Type A POSITIVE Antibody Screen NEGATIVE Meds: Medications Discontinued Medications Generic Name Dose Route Start Last Admin Trade Name Freq PRN Reason Stop Dose Admin Al Hydroxide/Mg Hydroxide 15 0 ml 10/26/20 20:03 10/26/20 20:28 ml/ Lidocaine HCl 5 ml PO 10/26/20 20:04 20 each ONETIME ONE Administration Potassium Chloride 40 meq/ 100 mls @ 25 mls/hr 10/26/20 20:38 10/26/20 22:25 Premix IV 10/27/20 00:37 25 mls/hr ONETIME ONE Administration Sodium Chloride 1,000 mls @ 1,000 mls/hr 10/26/20 22:11 10/26/20 22:25 Normal Saline IV 10/26/20 23:10 1,000 mls/hr .Bolus ONE Administration Lidocaine HCl 15 ml 10/26/20 20:03 10/26/20 20:29 Xylocaine 2% Viscous PO 10/26/20 20:04 Not Given ONETIME ONE Morphine Sulfate 4 mg 10/26/20 19:11 10/26/20 19:32 Morphine IVPUSH 10/26/20 19:12 4 mg ONETIME ONE Administration Morphine Sulfate 4 mg 10/26/20 22:11 10/26/20 22:26 Morphine IVPUSH 10/26/20 22:12 4 mg ONETIME ONE Administration Potassium Chloride 20 meq 10/26/20 20:38 10/26/20 22:25 Potassium Chloride Solution PO 10/26/20 20:39 Not Given ONETIME ONE Potassium Chloride 20 meq 10/26/20 22:24 10/26/20 22:25 Potassium Chloride PO 10/26/20 22:25 20 meq ONETIME ONE Administration Departure - Departure Time of Disposition: 19:56 Disposition: Home, Self-Care 01 Condition: Fair Clinical Impression: Peptic ulcer - Discharge Information *PRESCRIPTION DRUG MONITORING PROGRAM REVIEWED*: No *COPY OF PRESCRIPTION DRUG MONITORING REPORT IN PATIENT LUC: No Prescriptions: Mag Hydrox/Aluminum Hyd/Simeth [Maalox Maximum Strength Susp] 20 ml PO Q6HR PRN #240 oral.susp PRN Reason: Abdominal Pain Instructions: Peptic Ulcer, [id number] Referrals: Alyssa Zurita BOARD CERTIFIED BEHAVIORAL ANALYST [Primary Care Provider] - Forms: ED Department Discharge Additional Instructions: Your evaluated today on an emergent basis. At this time I do believe your pain is secondary to the ulcers that you have been dealing with. I recommend continuing Protonix as prescribed. I also recommend using Maalox as needed for pain. It is important that you follow-up for your work-up. If you have any new or worsening pain or blood in your stool please return to the emergency department. [facility] - Primary [facility] [address] [place] [id number] [id number] The patient is informed of any results of their evaluation and diagnostic workup and all questions are answered. They are given discharge instructions and return precautions. The patient is stable for discharge. The patient states they understand and agree with the plan and that they will return if their symptoms get worse or if they have any new concerns. The following information is given to patients seen in the emergency department who are being discharged to home. This information is to outline your options for follow-up care. We provide all patients seen in our emergency department with a follow-up referral. The need for follow-up, as well as the timing and circumstances, are variable depending upon the specifics of your emergency department visit. If you don't have a primary care physician on staff, we will provide you with a referral. We always advise you to contact your personal physician following an emergency department visit to inform them of the circumstance of the visit and for follow-up with them and/or the need for any referrals to a consulting specialist. The emergency department will also refer you to a specialist when appropriate. This referral assures that you have the opportunity for follow-up care with a specialist. All of these measure are taken in an effort to provide you with optimal care, which includes your follow-up. Under all circumstances we always encourage you to contact your private physician who remains a resource for coordinating your care. When calling for follow-up care, please make the office aware that this follow-up is from your recent emergency room visit. If for any reason you are refused follow-up, please contact the [facility] Emergency Department at and asked to speak to the emergency department charge nurse. Sepsis Event Note (ED) - Evaluation Sepsis Screening Result: No Definite Risk - Focused Exam Vital Signs: Vital Signs Temp Pulse Resp BP Pulse Ox 10/27/20 02:10 59 L 16 160/49 H 99 10/26/20 22:32 62 18 141/53 H 100 10/26/20 21:24 79 18 130/49 L 98 10/26/20 19:04 36.7 C 75 21 H 162/64 H 96
[2020-10-26] MEDS ORDERED: Lidocaine 2% Viscous Solution 15 ML Cup PO ONE (20:03)
[2020-10-26] MEDS ORDERED: Alum Hydrox/Mag Hydrox/Simeth 15 ML, Lidocaine 2% 5 ML PO ONE ×2 (20:03)
[2020-10-26] MEDS ORDERED: Potassium Chloride Riders 40 MEQ in Premix Bag 1 BAG IV ONE (20:38)
[2020-10-26] MEDS ORDERED: Potassium Chloride 10% 20 MEQ/15 ML Soln 15 ML UD Cup PO ONE (20:38)
--- NOTE | 2020-10-26 21:43 | US ---
CLINICAL HISTORY: History of cholelithiasis, for cholecystitis COMPARISON: Ultrasound abdomen 10/18/2020 TECHNIQUE: Real time powell scale imaging and color Doppler analysis was performed of the right upper quadrant of the abdomen. FINDINGS: Liver: Mildly increased echotexture, suggesting steatosis. No suspicious lesions. No intrahepatic biliary dilatation. Common bile duct: Normal caliber measuring up to 4 mm. Gallbladder: A 1.5 cm shadowing stone redemonstrated. No wall thickening or pericholecystic fluid. Pancreas: Grossly unremarkable where visualized. Vasculature: Normal caliber abdominal aorta. Patent intrahepatic IVC and main portal vein. Right kidney: Measures 8.9 cm and length. Normal cortical thickness and parenchymal echotexture. Small cyst noted in the upper pole. No hydronephrosis. Impression : 1. Cholelithiasis. No sonographic evidence of cholecystitis. 2. Increased liver echotexture, suggesting steatosis. Dictated by Nandini Childers MD @ Oct 26 2020 9:34PM Signed by Dr. Nandini Childers @ Oct 26 2020 9:43PM
[2020-10-26] MEDS ORDERED: Sodium Chloride 0.9% 1,000 ML IV ONE (22:11)
[2020-10-26] MEDS ORDERED: Potassium Chloride 10% 20 MEQ/15 ML Soln 30 ML UD Cup PO ONE (22:24)
== END 2020-10-27 02:10 | disposition home or self-care (01) ==
LOC: MW.ED 18:53
DX: K27.9 Peptic ulcer, site unspecified, unspecified as acute or chronic, without hemorrhage or perforation (principal); K80.20 Calculus of gallbladder without cholecystitis without obstruction; I10 Essential (primary) hypertension; K21.9 Gastro-esophageal reflux disease without esophagitis; E10.9 Type 1 diabetes mellitus without complications; Z72.0 Tobacco use; Z79.899 Other long term (current) drug therapy
CPT/HCPCS: 36415; 76705; 80053; 83690; 84132; 85025; 85610; 86850; 86900; 86901; 96365; 96366; 96375; 96376; 99284; A9270; J2270; J3480; J7030; 99283

== ENCOUNTER 2020-11-09 07:10 | Day surgery (SDC) | payer MEDICARE ==
[~2020-11-09 07:10] MED LIST: Lidocaine 2% 5 ML SDV ONE; Midazolam 1 MG/ML 2 ML SDV ONE; Propofol 200 MG/20 ML SDV ONE; fentaNYL 100 MCG/2 ML SDV ONE
--- NOTE | 2020-11-09 07:46 | PCM.PREANE ---
Preanesthetic Assessment - Anesthesia/Transfusion/Family Hx Anesthesia History: Prior Anesthesia Without Reaction Family History of Anesthesia Reaction: No Transfusion History: No Prior Transfusion(s) Intubation History: Unknown - Review of Systems General: No Symptoms Pulmonary: No Symptoms Cardiovascular: No Symptoms Gastrointestinal: Abdominal Pain Neurological: No Symptoms Other: Reports: None - Physical Assessment Height: 4 ft 8 in Weight: 50.802 kg ASA Class: 2 Mental Status: Alert & Oriented x3 Airway Class: Mallampati = 2 Dentition: Reports: Normal Dentition, Broken Tooth/Teeth (loose tooth lower front) Thyro-Mental Finger Breadths: 3 Mouth Opening Finger Breadths: 3 ROM/Head Extension: Full Lungs: Clear to Auscultation, Normal Respiratory Effort Cardiovascular: Regular Rate, Regular Rhythm, Murmurs (tricuspid and mitral systolic murmer) - Allergies Allergies/Adverse Reactions: Allergies Allergy/AdvReac Type Severity Reaction Status Date / Time No Known Allergies Allergy Verified 11/06/20 11:29 - Blood Blood Available: No - Anesthesia Plan Pre-Op Medication Ordered: None - Acknowledgements Anesthesia Type Planned: MAC Pt an Appropriate Candidate for the Planned Anesthesia: Yes Alternatives and Risks of Anesthesia Discussed w Pt/Guardian: Yes Pt/Guardian Understands and Agrees with Anesthesia Plan: Yes PreAnesthesia Questionnaire HEENT History: Reports: Other (See Below) Other HEENT History: uses reading glasses, has upper dentures Cardiovascular History: Reports: High Cholesterol, Hypertension, Other (See Below) (strong systolic murmer upper chest) Respiratory History: Reports: COPD Gastrointestinal History: Reports: GERD, Other (See Below) (stable liver lesion on CT scan) Other Gastrointestinal History: gall stones Genitourinary History: Reports: Renal Calculus, Other (See Below) (renal cyst) 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: Musculoskeletal History: Reports: Arthritis, Fracture Other Musculoskeletal History: hx of fx left ankle Endocrine/Metabolic History: Reports: Diabetes, Type I Other Endocrine/Metabolic History: states unsure of type 1 or 2- does not take medication - Infectious Disease History Infectious Disease History: Reports: Chicken Pox, Measles, Mumps - Past Surgical History Female Surgical History: Reports: Tubal Ligation Male Surgical History: Reports: Other (See Below) (cystoscopy) Musculoskeletal Surgical History: Reports: Other (See Below) (foot surgery) - SUBSTANCE USE Tobacco Use Status *Q: Current Every Day Tobacco User (down to 2-3 cigarettes par day) Tobacco Use Within Last Twelve Months: Cigarettes Recreational Drug Use History: No - HOME MEDS Home Medications: Home Meds Chlorthalidone 25 mg PO DAILY 10/03/20 [History] lisinopriL [Prinivil] 20 mg PO DAILY 10/03/20 [History] Pantoprazole [ProTONIX] 40 mg PO DAILY 10/26/20 [History] Sucralfate [Carafate] 1 gm PO QID 10/26/20 [History] - CURRENT (IN HOUSE) MEDS Current Meds: Current Medications Discontinued Medications Fentanyl (Sublimaze) Confirm Administered Dose 100 mcg .ROUTE .STK-MED ONE Stop: 11/09/20 07:01 Lidocaine (Xylocaine-Mpf 2%) Confirm Administered Dose 5 ml .ROUTE .STK-MED ONE Stop: 11/09/20 07:01 Midazolam HCl (Versed 1 Mg/Ml) Confirm Administered Dose 2 mg .ROUTE .STK-MED ONE Stop: 11/09/20 07:01 Propofol (Diprivan 20 Ml) Confirm Administered Dose 400 mg .ROUTE .STK-MED ONE Stop: 11/09/20 07:01
[2020-11-09] MEDS ORDERED: Glycopyrrolate 0.2 MG/ML SDV ONE (09:13)
--- NOTE | 2020-11-09 09:45 | PCM.OPNOTE ---
<Irma Gastelum - Last Filed: 11/09/20 09:43> - General Post-Op/Procedure Note Date of Surgery/Procedure: 11/09/20 Operative Procedure(s): Diagnostic EGD and colonoscopy Findings: hyperplastic rectal polyps Pre Op Diagnosis: hyperplastic rectal polyps Primary Surgeon: Abiola oRot Condition: Good <Abiola Root - Last Filed: 11/09/20 09:52> - General Post-Op/Procedure Note Pre Op Diagnosis: Acute on chronic abdominal pain Post-Op Diagnosis: Hyperplastic rectal polyps, normal appearing egd Anesthesia Technique: MAC
--- NOTE | 2020-11-09 10:04 | PCM.POSTAN ---
POST ANESTHESIA ASSESSMENT - MENTAL STATUS Mental Status: Alert, Oriented - VITAL SIGNS Vital Signs: Last Vital Signs Temp 36.8 C 11/09/20 07:25 Pulse 72 11/09/20 09:55 Resp 12 11/09/20 09:55 BP 127/59 L 11/09/20 09:55 Pulse Ox 99 11/09/20 09:55 - RESPIRATORY Respiratory Status: Respiratory Rate WNL, Airway Patent, O2 Saturation Stable - CARDIOVASCULAR CV Status: Pulse Rate WNL, Blood Pressure Stable - GASTROINTESTINAL GI Status: No Symptoms - PAIN Pain Score: 0 - POST OP HYDRATION Hydration Status: Adequate & Stable - OBSERVATIONS Free Text/Narrative:: No anesthesia problems
--- NOTE | 2020-11-09 10:19 | PCM48HPAN ---
Post Anesthesia Note - EVALUATION WITHIN 48HRS OF ANESTHETIC Vital Signs in Normal Range: Yes Patient Participated in Evaluation: Yes Respiratory Function Stable: Yes Airway Patent: Yes Cardiovascular Function Stable: Yes Hydration Status Stable: Yes Pain Control Satisfactory: Yes Nausea and Vomiting Control Satisfactory: Yes Mental Status Recovered: Yes Vital Signs: Last Vital Signs Temp 36.8 C 11/09/20 07:25 Pulse 72 11/09/20 09:55 Resp 12 11/09/20 09:55 BP 127/59 L 11/09/20 09:55 Pulse Ox 99 11/09/20 09:55 - COMMENTS/OBSERVATIONS Free Text/Narrative:: No anesthesia problems
--- NOTE | 2020-11-10 12:32 | OR ---
SURGEON: ABIOLA ROOT MD DATE OF PROCEDURE: 11/09/2020 PREOPERATIVE DIAGNOSIS: Acute on chronic abdominal pain. POSTOPERATIVE DIAGNOSES: 1. Hyperplastic rectal polyps. 2. Duodenal lesion. PROCEDURE PERFORMED: Diagnostic esophagogastroduodenoscopy and colonoscopy. PRIMARY SURGEON: Endoscopist: Abiola Root MD. ANESTHESIA: MAC. INSTRUMENT USED: Olympus endoscope, colonoscope. EXTENT OF EXAM: To the second portion of duodenum, to the cecum. PREPARATION: Good. LIMITATIONS: None. INDICATIONS FOR EXAMINATION: The patient is a 70-year-old female who presented to clinic with acute on chronic abdominal pain. The patient and I discussed the need for diagnostic EGD and colonoscopy. I explained the procedure, expected perioperative course, and risks. The patient verbalized understanding and wishes to proceed. PROCEDURE IN DETAIL: The patient was brought into the endoscopy suite and placed in the left lateral decubitus position. A time-out was completed verifying the patient's name, age, date of , allergies, and procedure to be performed. Monitored anesthesia care was induced and continuous oxygen was provided via nasal cannula throughout the procedure. A bite block was placed in the patient's mouth. After adequate sedation was achieved, a well-lubricated endoscope was placed in the patient's mouth and advanced under direct visualization to the second portion of duodenum. This appeared normal, and a photograph was taken. The scope was then fully withdrawn while examining the color, texture, anatomy, and integrity of the mucosa of the upper GI tract. Within the duodenal bulb, the patient had a lesion. This had the appearance of a duodenal papilla. Close inspection of the second portion of duodenum showed no evidence of the papilla in this location; however, this could be a limitation due to my scope. Multiple photographs of this were taken. I never saw any bile draining from this area, however. No biopsies were taken in case this was an anatomic variant. The scope was brought into the stomach, and a photograph was taken of the pylorus and GE junction. Both appeared anatomically normal. Biopsies were taken of the gastric antrum, body, and fundus and sent for histologic review and H. pylori testing. The scope was brought into the distal esophagus, and a photograph taken of the Z- line. This appeared normal. A biopsy was taken of the distal esophageal mucosa. The remainder of the esophagus was normal. This portion of procedure was terminated. I performed a digital rectal exam. This was normal. A well- lubricated colonoscope was inserted in the rectum and advanced under direct visualization to the level of the cecum. The cecum was identified by both visual and anatomic landmarks. A photograph was taken of the cecal cap as well as with the scope retroflexed within the cecum. I then fully withdrew my scope while examining the color, texture, anatomy, and integrity of the mucosa from the cecum to the anal canal. The patient was noted to have some scattered hyperplastic polyps within the rectal vault, but otherwise, her exam was normal. The scope was retroflexed within the rectum. This appeared normal. The scope was straightened out and fully withdrawn. The cecum to anus time was 9 minutes. The patient tolerated the procedure well, was transferred to the PACU in stable condition. ENDOSCOPIC DIAGNOSES: 1. Hyperplastic rectal polyps. 2. Duodenal lesion. RECOMMENDATIONS: We will follow up with the patient in clinic in 2 weeks. KENIA DELGADO /[id number]
== END 2020-11-09 10:21 | disposition home or self-care (01) ==
LOC: MW.SDS 07:10
PROVIDERS: ATTEND Surgery
DX: K57.30 Diverticulosis of large intestine without perforation or abscess without bleeding (principal); G89.29 Other chronic pain; K29.50 Unspecified chronic gastritis without bleeding; K20.90 Esophagitis, unspecified without bleeding; I10 Essential (primary) hypertension; F17.210 Nicotine dependence, cigarettes, uncomplicated; E78.00 Pure hypercholesterolemia, unspecified; J44.9 Chronic obstructive pulmonary disease, unspecified; E11.65 Type 2 diabetes mellitus with hyperglycemia; Z79.899 Other long term (current) drug therapy; Z98.890 Other specified postprocedural states
CPT/HCPCS: 43239; 45378; 88305; 88312; J2250; J2704; J3010; J3490; 00813

== ENCOUNTER 2020-11-19 21:26 | Emergency (ER) | payer MEDICARE ==
[2020-11-19] MEDS ORDERED: Ketorolac 15 MG/ML SDV IVPUSH ONE (22:16)
[2020-11-19] MEDS ORDERED: Sodium Chloride 0.9% 1,000 ML IV ONE (22:16)
[2020-11-19] MEDS ORDERED: Ondansetron 4 MG/2 ML SDV IVPUSH ONE (22:17)
[2020-11-19] MEDS ORDERED: HYDROmorphone 1 MG/ML Syringe IVPUSH ONE (22:29)
[2020-11-19 23:05] LABS: BLOOD UREA NITROGEN,BUN 12 mg/dL (7.0-18.0); CARBON DIOXIDE,CO2 26.8 mmol/L (21.0-32.0); CHLORIDE,CL 93 mmol/L (98-107); GLUCOSE RANDOM 170 mg/dL (74-106); LIPASE 181 U/L (73-393); POTASSIUM,K 2.8 mmol/L (3.5-5.1); SODIUM,NA 132 mmol/L (136-145)
[2020-11-19] MEDS ORDERED: Potassium Chloride 10% 20 MEQ/15 ML Soln 30 ML UD Cup PO ONE (23:49)
[2020-11-20] MEDS ORDERED: Dicyclomine 10 MG Cap PO ONE (00:24)
[2020-11-20] MEDS ORDERED: HYDROmorphone 2 MG/ML Syringe IVPUSH ONE (00:25)
--- NOTE | 2020-11-20 00:32 | EDM.PDOC ---
ED HPI GENERAL MEDICAL PROBLEM - General Chief Complaint: Abdominal Pain Stated Complaint: STOMACK PAIN Time Seen by Provider: 11/19/20 22:05 - History of Present Illness INITIAL COMMENTS - FREE TEXT/NARRATIVE: HISTORY AND PHYSICAL: History of present illness: This is a 70-year-old female with a history significant for biliary colic who presents ER today complaining of exacerbation of her biliary colic pain. Patient reports that she is followed by Dr. Miguel and that is scheduled to have surgery done in mid November. Patient reports that she had an endoscopy/colonoscopy performed by Dr. Miguel within the last couple weeks which revealed inflammation and polyps in her colon. Patient denies any recent fevers, shakes, chills, diarrhea, dysuria, frequency, urgency, chest pain, shortness of breath. Patient reports that she has had nausea with no vomiting. Patient reports that the pain started at 8 PM which was approximately 45 minutes after having a slice of cheese pizza. Patient denies any melena or bright red blood per rectum. Review of systems: As per history of present illness and below otherwise all systems reviewed and negative. Past medical history: As per history of present illness and as reviewed below otherwise noncontributory. Surgical history: As per history of present illness and as reviewed below otherwise noncontributory. Social history: No reported history of drug or alcohol abuse. Family history: As per history of present illness and as reviewed below otherwise noncontributory. Physical exam: This patient was seen and evaluated during the 2019 SARS-CoV-2 novel coronavirus pandemic period. Community viral transmission is ongoing at time of this encounter and the emergency department is operating under pandemic response procedures. Constitutional: Patient is oriented to person, place, and time. Appears well- developed and well-nourished. No distress. HEENT: Moist mucous membranes Head: Normocephalic and atraumatic Eyes: Right eye exhibits no discharge. Left eye exhibits no discharge. No scleral icterus Neck: Normal range of motion. No tracheal deviation present. Cardiovascular: Normal rate and regular rhythm. Pulmonary: Effort normal, no respiratory distress. Abd: Soft, nondistended, no rebound/guarding, no psoas or obturator signs, no tenderness at Mcberney's point, no Simpson's sign. Pt does not present with an exam that would be consistent with an acute surgical abdomen at this time, tenderness palpation right upper quadrant and midepigastric region. Musculoskeletal: Normal range of motion Neurologic: Alert and oriented to person, place and time. Skin: [place], warm and dry. Psychiatric: Normal mood and affect. Behavior is normal. Judgment and thought content normal. Nursing note and vital signs have been reviewed Diagnostics: [] Therapeutics: [] Assessment and plan: This is a 70-year-old female who presents ER today complaining of right upper quadrant/midepigastric abdominal pain that started at approximately 8 PM after eating cheese pizza. Patient reports the pain feels similar to her prior exacerbations that are felt to be secondary to biliary colic. Patient reports that she is currently in the midst of a work-up with Dr. Miguel the surgery physician and is scheduled to have a cholecystectomy done in mid November. Patient recently had a endoscopy and colonoscopy which not reveal any significant pathology. Patient denies any fever or infectious process. Patient's presentation is not consistent with acute cholecystitis. Patient had an ultrasound performed which did not reveal any evidence of acute cholecystitis. Patient's labs were unremarkable with normal LFTs and just a slightly elevated WBC count which is nonspecific. Patient's urinalysis is normal. Patient has been given adequate analgesia here in the ED. After Dilaudid 0.5 mg IV and Toradol 15 mg IV the patient reports that she feels significant improvement and relief in her pain. I have discussed with the patient that at this time given her comfort level and no evidence of obstructive stone that we would likely discharge her safely to home and have her follow-up with Dr. Miguel in the morning by phone for further instructions on follow-up. Reassessment at the time of disposition demonstrates that the patient is in no acute distress. The patient has remained stable throughout the entire ED visit and is without objective evidence for acute process requiring urgent intervention or hospitalization. The patient is stable for discharge, counseling is provided as documented above, discussed symptomatic treatment and specific conditions for return. I have spoken with the patient/caregiver and discussed todays findings, in addition to providing specific details for the plan of care. Questions are answered and there is agreement with the plan. Definitive disposition and diagnosis as appropriate pending reevaluation and review of above. abdominal Pain Score (Numeric/FACES): 10 - Related Data Allergies Allergy/AdvReac Type Severity Reaction Status Date / Time No Known Allergies Allergy Verified 11/19/20 22:03 Home Meds: Home Meds Chlorthalidone 25 mg PO DAILY 10/03/20 [History] lisinopriL [Prinivil] 20 mg PO DAILY 10/03/20 [History] Pantoprazole [ProTONIX] 40 mg PO DAILY 10/26/20 [History] Sucralfate [Carafate] 1 gm PO QID 10/26/20 [History] Acetaminophen/HYDROcodone [[place] 325-5 MG] 1 tab PO Q6H PRN #12 tablet 11/20/20 [Rx] Hyoscyamine Sulfate [Levsin-Sl] 0.125 mg SL QID PRN #12 tab.subl 11/20/20 [Rx] Ibuprofen 600 mg PO Q6HR PRN #30 tablet 11/20/20 [Rx] Ondansetron [Zofran ODT] 4 mg PO Q6H PRN #12 tab.dis 11/20/20 [Rx] Past Medical History HEENT History: Reports: Other (See Below) Other HEENT History: uses reading glasses, has upper dentures Cardiovascular History: Reports: High Cholesterol, Hypertension, Other (See Below) Respiratory History: Reports: COPD Other Respiratory History: denies COPD, no inhalers Gastrointestinal History: Reports: GERD, Other (See Below) Other Gastrointestinal History: gall stones Genitourinary History: Reports: Renal Calculus, Other (See Below) Other Genitourinary History: HX OF KIDNEY PROBLEMS MANAGER CRISIS History: Reports: Musculoskeletal History: Reports: Arthritis, Fracture Other Musculoskeletal History: hx of fx left ankle Endocrine/Metabolic History: Reports: Diabetes, Type I Other Endocrine/Metabolic History: states unsure of type 1 or 2- does not take medication - Infectious Disease History Infectious Disease History: Reports: Chicken Pox, Measles, Mumps - Past Surgical History Head Surgeries/Procedures: Reports: None GI Surgical History: Reports: Colonoscopy, EGD Female Surgical History: Reports: Tubal Ligation Other Female Surgeries/Procedures: Cystoscopy Musculoskeletal Surgical History: Reports: Other (See Below) Social & Family History - Family History Family Medical History: No Pertinent Family History - Tobacco Use Tobacco Use Status *Q: Current Every Day Tobacco User Years of Tobacco use: 45 Packs/Tins Daily: 1 - Caffeine Use Caffeine Use: Reports: Coffee - Recreational Drug Use Recreational Drug Use: No ED ROS GENERAL - Review of Systems Review Of Systems: See Below ED EXAM, GENERAL - Physical Exam Exam: See Below Course - Vital Signs Last Recorded V/S: Last Vital Signs Temp 97.9 F 11/19/20 22:04 Pulse 75 11/19/20 22:04 Resp 20 11/19/20 22:04 BP 149/34 H 11/19/20 22:04 Pulse Ox 96 11/19/20 22:04 - Orders/Labs/Meds Orders: Active Orders 24 hr Category Date Time Status Abdomen Ltd [US] Stat Exams 11/19/20 22:33 Ordered Dicyclomine [Bentyl] Med 11/20/20 00:24 Once 10 mg PO ONETIME ONE HYDROmorphone [Dilaudid] Med 11/20/20 00:25 Once 0.5 mg IVPUSH ONETIME ONE Saline Lock Insert [OM.PC] Stat Oth 11/19/20 22:17 Ordered Medication Orders Dicyclomine HCl (Bentyl) 10 mg PO ONETIME ONE Stop: 11/20/20 00:25 Labs: Laboratory Tests 11/19/20 11/19/20 11/19/20 Range/Units 22:35 22:35 23:29 WBC 12.39 H (4.0-11.0) K/uL RBC 4.81 (4.30-5.90) M/uL Hgb 15.2 (12.0-16.0) g/dL Hct 43.1 (36.0-46.0) % MCV 89.6 (80.0-98.0) fL MCH 31.6 (27.0-32.0) pg MCHC 35.3 (31.0-37.0) g/dL RDW Std Deviation 46.0 (28.0-62.0) fl RDW Coeff of Dwight 14 (11.0-15.0) % Plt Count 365 (150-400) K/uL MPV 10.50 (7.40-12.00) fL Neut % (Auto) 58.6 (48.0-80.0) % Lymph % (Auto) 33.4 (16.0-40.0) % [place] % (Auto) 6.2 (0.0-15.0) % Eos % (Auto) 1.6 (0.0-7.0) % Baso % (Auto) 0.2 (0.0-1.5) % Neut # (Auto) 7.3 H (1.4-5.7) K/uL Lymph # (Auto) 4.1 H (0.6-2.4) K/uL [place] # (Auto) 0.8 (0.0-0.8) K/uL Eos # (Auto) 0.2 (0.0-0.7) K/uL Baso # (Auto) 0.0 (0.0-0.1) K/uL Nucleated RBC % 0.0 /100WBC Nucleated RBCs # 0 K/uL Sodium 132 L (136-145) mmol/L Potassium 2.8 L (3.5-5.1) mmol/L Chloride 93 L (98-107) mmol/L Carbon Dioxide 26.8 (21.0-32.0) mmol/L BUN 12 (7.0-18.0) mg/dL Creatinine 0.8 (0.6-1.0) mg/dL Est Cr Clr Drug Dosing 48.34 mL/min Estimated GFR (MDRD) > 60.0 ml/min Glucose 170 H (74-106) mg/dL Calcium 9.8 (8.5-10.1) mg/dL Total Bilirubin 0.2 (0.2-1.0) mg/dL AST 22 (15-37) IU/L ALT 21 (14-63) IU/L Alkaline Phosphatase 69 (46-116) U/L Total Protein 7.8 (6.4-8.2) g/dL Albumin 3.7 (3.4-5.0) g/dL Globulin 4.1 H (2.6-4.0) g/dL Albumin/Globulin Ratio 0.9 (0.9-1.6) Lipase 181 (73-393) U/L Urine Color YELLOW Urine Appearance CLEAR Urine pH 6.0 (5.0-8.0) Ur Specific [place] 1.025 (1.001-1.035) Urine Protein NEGATIVE (NEGATIVE) mg/dL Urine Glucose (UA) NEGATIVE (NEGATIVE) mg/dL Urine Ketones NEGATIVE (NEGATIVE) mg/dL Urine Occult Blood TRACE-INTACT H (NEGATIVE) Urine Nitrite NEGATIVE (NEGATIVE) Urine Bilirubin NEGATIVE (NEGATIVE) Urine Urobilinogen 0.2 (<2.0) EU/dL Ur Leukocyte Esterase NEGATIVE (NEGATIVE) Urine RBC 0-2 (0-2/HPF) Urine WBC 0-3 (0-5/HPF) Ur Epithelial Cells OCCASIONAL (NONE-FEW) Urine Bacteria FEW (NEGATIVE) Meds: Medications Generic Name Dose Route Start Last Admin Trade Name Sanjuq PRN Reason Stop Dose Admin Dicyclomine HCl 10 mg 11/20/20 00:24 Bentyl PO 11/20/20 00:25 ONETIME ONE Discontinued Medications Generic Name Dose Route Start Last Admin Trade Name Freq PRN Reason Stop Dose Admin Hydromorphone HCl 0.5 mg 11/19/20 22:29 11/19/20 22:39 Dilaudid IVPUSH 11/19/20 22:30 0.5 mg ONETIME ONE Administration Sodium Chloride 1,000 mls @ 999 mls/hr 11/19/20 22:16 11/19/20 22:33 Normal Saline IV 11/19/20 23:16 999 mls/hr .Bolus ONE Administration Ketorolac Tromethamine 15 mg 11/19/20 22:16 11/19/20 22:34 Toradol IVPUSH 11/19/20 22:17 15 mg ONETIME ONE Administration Ondansetron HCl 4 mg 11/19/20 22:17 11/19/20 22:33 Zofran IVPUSH 11/19/20 22:18 4 mg ONETIME ONE Administration Potassium Chloride 40 meq 11/19/20 23:49 Potassium Chloride PO 11/19/20 23:50 ONETIME ONE Departure - Departure Time of Disposition: 00:29 Disposition: Home, Self-Care 01 Condition: Good Clinical Impression: Biliary colic symptom Cholelithiases Qualifiers: Cholelithiasis location: gallbladder Cholecystitis presence: without cholecystitis Biliary obstruction: without biliary obstruction Qualified Code(s): K80.20 - Calculus of gallbladder without cholecystitis without obstruction Abdominal pain Qualifiers: Abdominal location: right upper quadrant Qualified Code(s): R10.11 - Right upper quadrant pain - Discharge Information Instructions: Cholelithiasis, Abdominal Pain, Adult Referrals: Alyssa Zurita, [employer] [facility] [Primary Care Provider] - Additional Instructions: You were seen and evaluated in the ER today secondary to pain in your stomach. The pain appears to be most likely secondary to stone in your gallbladder. Please keep your appointment with Dr. Miguel to have your gallbladder evaluated for removal. Please call her in the morning for further follow-up instructions. You will be sent home with a prescription for Levsin sublingual tablets, ibuprofen, [place], and Zofran to assist you with your symptoms. Please return to the ER if you develop any new or concerning symptoms. The following information is given to patients seen in the emergency department who are being discharged to home. This information is to outline your options for follow-up care. We provide all patients seen in our emergency department with a follow-up referral. The need for follow-up, as well as the timing and circumstances, are variable depending upon the specifics of your emergency department visit. If you don't have a primary care physician on staff, we will provide you with a referral. We always advise you to contact your personal physician following an emergency department visit to inform them of the circumstance of the visit and for follow-up with them and/or the need for any referrals to a consulting specialist. The emergency department will also refer you to a specialist when appropriate. This referral assures that you have the opportunity for follow-up care with a specialist. All of these measure are taken in an effort to provide you with optimal care, which includes your follow-up. Under all circumstances we always encourage you to contact your private physician who remains a resource for coordinating your care. When calling for follow-up care, please make the office aware that this follow-up is from your recent emergency room visit. If for any reason you are refused follow-up, please contact the [facility] Emergency Department at and asked to speak to the emergency department charge nurse. Riana Trinchera [facility] [address] [place] [id number] [id number] Sepsis Event Note (ED) - Evaluation Sepsis Screening Result: No Definite Risk - Focused Exam Vital Signs: Vital Signs Temp Pulse Resp BP Pulse Ox 11/19/20 22:04 97.9 F 75 20 149/34 H 96 - My Orders Last 24 Hours: My Active Orders 11/19/20 22:17 Saline Lock Insert [OM.PC] Stat 11/19/20 22:33 Abdomen Ltd [US] Stat 11/20/20 00:24 Dicyclomine [Bentyl] 10 mg PO ONETIME ONE 11/20/20 00:25 HYDROmorphone [Dilaudid] 0.5 mg IVPUSH ONETIME ONE - Assessment/Plan Last 24 Hours: My Active Orders 11/19/20 22:17 Saline Lock Insert [OM.PC] Stat 11/19/20 22:33 Abdomen Ltd [US] Stat 11/20/20 00:24 Dicyclomine [Bentyl] 10 mg PO ONETIME ONE 11/20/20 00:25 HYDROmorphone [Dilaudid] 0.5 mg IVPUSH ONETIME ONE
--- NOTE | 2020-11-20 01:23 | US ---
INDICATION: Abdominal pain. LIMITED ABDOMEN ULTRASOUND Technique: Multiple sonographic images were performed over the right upper quadrant. Findings: A 1.8 centimeter shadowing gallstone is again visualized within the gallbladder. No gallbladder wall thickening or pericholecystic fluid is noted. There was a positive sonographic Simpson`s sign according to the technologist. No intrahepatic biliary dilatation is seen and the common bile duct is normal in caliber, measuring 5 mm in diameter. The visualized portions of the liver, pancreas, and right kidney are unremarkable aside from a 1.7 centimeter right renal cyst. IMPRESSION: 1. Cholelithiasis, as before. Positive sonographic Simpson sign, without other sonographic evidence of cholecystitis. 2. Small right renal cyst. UMM SPENCE MD [employer] Dictated by Jose Spence MD @ 11/20/2020 1:19:51 AM Dictated by: Jose Spence MD @ 11/20/2020 01:21:12 (Electronically Signed)
== END 2020-11-20 01:04 | disposition home or self-care (01) ==
LOC: MW.ED 21:26
DX: K80.20 Calculus of gallbladder without cholecystitis without obstruction (principal); I10 Essential (primary) hypertension; J44.9 Chronic obstructive pulmonary disease, unspecified; K21.9 Gastro-esophageal reflux disease without esophagitis; E10.9 Type 1 diabetes mellitus without complications; Z72.0 Tobacco use; Z79.899 Other long term (current) drug therapy
CPT/HCPCS: 36415; 76705; 80053; 81001; 83690; 85025; 96374; 96375; 96376; 99284; A9270; J1170; J1885; J2405; J7030; 99283

== ENCOUNTER 2020-11-23 08:55 | Day surgery (SDC) | payer MEDICARE ==
[~2020-11-23 08:55] MED LIST changes: +Ketorolac 30 MG/ML SDV ONE; +Lactated Ringers 1,000 ML IV SCH; +Ondansetron 4 MG/2 ML SDV ONE; +Rocuronium Bromide 50 MG/5 ML Syringe ONE; +Sodium Chloride 0.9% 10 ML SDV IV PRN; +Sodium Chloride 0.9% 10 ML Syringe FLUSH PRN; +Sodium Chloride 0.9% 2.5 ML Syringe FLUSH PRN; +Sodium Chloride 0.9% 20 ML ONE; +ceFAZolin 1 GM Vial ONE; +ceFAZolin 1 GM in Premix Bag 1 BAG IV ONE; -fentaNYL 100 MCG/2 ML SDV ONE; +fentaNYL 250 MCG/5 ML SDV ONE
--- NOTE | 2020-11-23 09:20 | PCM.PREANE ---
Preanesthetic Assessment - Anesthesia/Transfusion/Family Hx Anesthesia History: Prior Anesthesia Without Reaction Family History of Anesthesia Reaction: No Transfusion History: No Prior Transfusion(s) Intubation History: Unknown - Review of Systems General: No Symptoms Pulmonary: No Symptoms Cardiovascular: No Symptoms Gastrointestinal: No Symptoms Neurological: No Symptoms Other: Reports: None - Physical Assessment NPO Status Date: 11/22/20 Vital Signs: Last Vital Signs Temp 97.7 F 11/23/20 09:00 Pulse 57 L 11/23/20 09:00 Resp 15 11/23/20 09:00 BP 156/68 H 11/23/20 09:00 Pulse Ox 98 11/23/20 09:00 Height: 4 ft 8 in Weight: 49.895 kg Mental Status: Alert & Oriented x3 Airway Class: Mallampati = 2 Dentition: Reports: Edentulous (maxilla) ROM/Head Extension: Full Lungs: Clear to Auscultation, Normal Respiratory Effort Cardiovascular: Regular Rate, Regular Rhythm - Lab Values: Laboratory Last Values SARS-CoV-2 RNA (PONCHO) NEGATIVE (NEGATIVE) 11/23/20 07:53 - Allergies Allergies/Adverse Reactions: Allergies Allergy/AdvReac Type Severity Reaction Status Date / Time No Known Allergies Allergy Verified 11/20/20 13:47 - Blood Blood Available: No - Anesthesia Plan Pre-Op Medication Ordered: None - Acknowledgements Anesthesia Type Planned: General Anesthesia Pt an Appropriate Candidate for the Planned Anesthesia: Yes Alternatives and Risks of Anesthesia Discussed w Pt/Guardian: Yes Pt/Guardian Understands and Agrees with Anesthesia Plan: Yes PreAnesthesia Questionnaire HEENT History: Reports: Other (See Below) Other HEENT History: uses reading glasses, has upper dentures Cardiovascular History: Reports: Hypertension Respiratory History: Reports: None Gastrointestinal History: Reports: Cholelithiasis, Gastritis, GERD Other Gastrointestinal History: gallstones Genitourinary History: Reports: None, Renal Calculus 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: Musculoskeletal History: Reports: Arthritis, Fracture Other Musculoskeletal History: hx of fx left ankle Neurological History: Reports: None Psychiatric History: Reports: None Endocrine/Metabolic History: Other Endocrine/Metabolic History: prediabetic, states was on medication for diabetes in the past (over 4 months), have lost weight Hematologic History: Reports: None Immunologic History: Reports: None Oncologic (Cancer) History: Reports: None Dermatologic History: Reports: None - Infectious Disease History Infectious Disease History: Reports: Chicken Pox, Measles, Mumps - Past Surgical History Head Surgeries/Procedures: Reports: None HEENT Surgical History: Reports: None Cardiovascular Surgical History: Reports: None Respiratory Surgical History: Reports: None GI Surgical History: Reports: Colonoscopy, EGD Female Surgical History: Reports: Tubal Ligation Endocrine Surgical History: Reports: None Neurological Surgical History: Reports: None Musculoskeletal Surgical History: Reports: None Oncologic Surgical History: Reports: None Dermatological Surgical History: Reports: None - SUBSTANCE USE Tobacco Use Status *Q: Light Tobacco User Tobacco Use Within Last Twelve Months: No - HOME MEDS Home Medications: Home Meds Chlorthalidone 25 mg PO DAILY 10/03/20 [History] lisinopriL [Prinivil] 20 mg PO DAILY 10/03/20 [History] Pantoprazole [ProTONIX] 40 mg PO DAILY 10/26/20 [History] Sucralfate [Carafate] 1 gm PO QID 10/26/20 [History] Acetaminophen/HYDROcodone [[place] 325-5 MG] 1 tab PO Q6H PRN #12 tablet 11/20/20 [Rx] Ibuprofen 600 mg PO Q6HR PRN #30 tablet 11/20/20 [Rx] Ondansetron [Zofran ODT] 4 mg PO Q6H PRN #12 tab.dis 11/20/20 [Rx] Scopolamine 1 patch TRDERM ONETIME 11/20/20 [History] - CURRENT (IN HOUSE) MEDS Current Meds: Current Medications Lactated Ringer's (Ringers, Lactated) 1,000 mls @ 125 mls/hr IV ASDIRECTED HENNA Sodium Chloride (Saline Flush) 2.5 ml FLUSH ASDIRECTED PRN PRN Reason: Keep Vein Open Sodium Chloride (Normal Saline) 10 ml IV ASDIRECTED PRN PRN Reason: IV Use Sodium Chloride (Saline Flush) 10 ml FLUSH ASDIRECTED PRN PRN Reason: Keep Vein Open Discontinued Medications Cefazolin Sodium (Ancef) Confirm Administered Dose 1 gm .ROUTE .STK-MED ONE Stop: 11/23/20 07:16 Fentanyl (Sublimaze) Confirm Administered Dose 250 mcg .ROUTE .STK-MED ONE Stop: 11/23/20 07:18 Cefazolin Sodium/Dextrose 1 gm (/ Premix) 50 mls @ 100 mls/hr IV ONETIME ONE Stop: 11/22/20 14:16 Sodium Chloride (Normal Saline) Confirm Administered Dose 20 mls @ as directed .ROUTE .STK-MED ONE Stop: 11/23/20 07:16 Ketorolac Tromethamine (Toradol) Confirm Administered Dose 30 mg .ROUTE .STK-MED ONE Stop: 11/23/20 07:18 Lidocaine (Xylocaine-Mpf 2%) Confirm Administered Dose 5 ml .ROUTE .STK-MED ONE Stop: 11/23/20 07:18 Midazolam HCl (Versed 1 Mg/Ml) Confirm Administered Dose 2 mg .ROUTE .STK-MED ONE Stop: 11/23/20 07:18 Ondansetron HCl (Zofran) Confirm Administered Dose 4 mg .ROUTE .STK-MED ONE Stop: 11/23/20 07:18 Propofol (Diprivan 20 Ml) Confirm Administered Dose 200 mg .ROUTE .STK-MED ONE Stop: 11/23/20 07:18 Rocuronium [place] (Rocuronium Gaylord) Confirm Administered Dose 50 mg .ROUTE .STK-MED ONE Stop: 11/23/20 07:18
[2020-11-23] MEDS ORDERED: Octyl 2-Cyanoacrylate 1 Tube ONE (10:27)
[2020-11-23] MEDS ORDERED: Bupivacaine 0.5% 10 ML SDV ONE (10:27)
--- NOTE | 2020-11-23 11:53 | PCM.OPNOTE ---
- General Post-Op/Procedure Note Date of Surgery/Procedure: 11/23/20 Operative Procedure(s): Laparoscopic cholecystectomy Findings: Gallbladder that appeared mildly distended, contained gallstone, small adhesion of right liver capsule to abdominal wall Pre Op Diagnosis: Symptomatic cholelithiasis Post-Op Diagnosis: same Anesthesia Technique: General ET Tube Primary Surgeon: Abiola Root Fluid Replacement, Intraop: 1,000 Output, Urine Amount: 50 EBL in mLs: 5 Condition: Good
[2020-11-23] MEDS ORDERED: Acetaminophen 1,000 MG in Premix Bag 1 BAG IV ONE (12:27)
--- NOTE | 2020-11-23 12:43 | PCM.POSTAN ---
POST ANESTHESIA ASSESSMENT - MENTAL STATUS Mental Status: Alert, Oriented - VITAL SIGNS Vital Signs: Last Vital Signs Temp 97.5 F 11/23/20 11:57 Pulse 55 L 11/23/20 12:37 Resp 12 11/23/20 12:37 BP 124/47 L 11/23/20 12:37 Pulse Ox 100 11/23/20 12:37 - RESPIRATORY Respiratory Status: Respiratory Rate WNL, Airway Patent, O2 Saturation Stable - CARDIOVASCULAR CV Status: Pulse Rate WNL, Blood Pressure Stable - GASTROINTESTINAL GI Status: No Symptoms - POST OP HYDRATION Hydration Status: Adequate & Stable
[2020-11-23] MEDS ORDERED: Acetaminophen/oxyCODONE 325-5 MG Tab PO ONE (14:09)
[2020-11-23] MEDS ORDERED: oxyCODONE 5 MG Tab PO ONE (14:10)
--- NOTE | 2020-11-23 14:30 | PCM48HPAN ---
Post Anesthesia Note - EVALUATION WITHIN 48HRS OF ANESTHETIC Vital Signs in Normal Range: Yes Patient Participated in Evaluation: Yes Respiratory Function Stable: Yes Airway Patent: Yes Cardiovascular Function Stable: Yes Hydration Status Stable: Yes Pain Control Satisfactory: Yes Nausea and Vomiting Control Satisfactory: Yes Mental Status Recovered: Yes Vital Signs: Last Vital Signs Temp 97.3 F 11/23/20 12:42 Pulse 55 L 11/23/20 14:10 Resp 15 11/23/20 14:10 BP 173/71 H 11/23/20 14:10 Pulse Ox 97 11/23/20 14:10
--- NOTE | 2020-11-23 17:53 | OR ---
SURGEON: ABIOLA MADRID MD DATE OF PROCEDURE: 11/23/2020 PREOPERATIVE DIAGNOSIS: Symptomatic cholelithiasis. POSTOPERATIVE DIAGNOSIS: Symptomatic cholelithiasis. PROCEDURE PERFORMED: Laparoscopic cholecystectomy. PRIMARY SURGEON: Abiola Mdarid MD SECONDARY SURGEON: Rhett Smith MD ANESTHESIA: General endotracheal anesthesia. FLUIDS: 1000 mL of crystalloid. ESTIMATED BLOOD LOSS: 5 mL. URINE OUTPUT: 500 mL. FINDINGS: Gallbladder mildly distended and containing a large gallstone, small adhesion to the right liver capsule, to the abdominal wall. COMPLICATIONS: None. INDICATIONS: The patient is a 70-year-old female who has recently undergone an extensive workup for upper abdominal pain. She was found to have moderate gastritis, but despite taking pantoprazole daily, she still has persistent symptoms, especially postprandially. She was found to have cholelithiasis with no signs of acute cholecystitis. The patient was diagnosed with symptomatic cholelithiasis. The decision was made to proceed with a laparoscopic, possible open, cholecystectomy. I explained the procedure, expected perioperative course, and the risks. She verbalized understanding and wishes to proceed. PROCEDURE IN DETAIL: The patient was brought into the OR and placed on the OR table in supine position. A time-out was completed verifying the patient's name, age, date of , allergies, and procedure to be performed. General endotracheal anesthesia was induced. The left arm was tucked to the patient's side and a Peterson catheter placed. The abdomen was prepped and draped in usual standard fashion. The infraumbilical fold was anesthetized with 0.5% Marcaine plain. An 11 blade was used to make an incision along the infraumbilical fold. I bluntly dissected down to the level of the fascia. The fascia was elevated with Pasha's and incised sharply with curved Nash scissors. The peritoneum was grasped and incised sharply as well. Entry into the abdomen was palpated digitally. A 12 mm Lulu trocar was inserted in the abdomen and it was insufflated. A 5 mm 30 degree scope was inserted. I inspected the area underneath my initial trocar placement. No damage to surrounding structures was noted. The patient was placed into reverse Trendelenburg position and airplaned slightly to the left. 5 mm trocars were placed in the following locations under direct visualization; one in the epigastric area, one in the right flank, and one 2 fingerbreadths below the right subcostal margin in the midclavicular line. The dome of the gallbladder was grasped and elevated cranially. I identified the infundibulum. Using a combination of blunt dissection and hook cautery, I dissected around the cystic duct and artery. I identified the node of Calot. This was swept down with gentle blunt dissection. Once my critical view was achieved, a photograph was taken. I doubly clipped and ligated the cystic duct and artery. Using electrocautery, I the gallbladder from the remainder of the cystic plate. A small rent was made in the gallbladder and bile was spilled in the abdomen. However, the gallstone remained within the lumen of the gallbladder. Once the gallbladder was completely removed from the liver bed, it was placed in an Endo Catch bag and removed through the infraumbilical port site. The right upper quadrant was irrigated with normal saline until it ran clear. This was suctioned out. There was a small adhesion along the dome of the liver on the right side. This was taken down with hook cautery. The 5 mm trocars were removed and the abdomen allowed to desufflate. The 12 mm trocar was removed as well. The fascia at the infraumbilical port site was closed with interrupted 0 Vicryl sutures. The subcutaneous fat layer was closed with a running 3-0 Vicryl stitch. The skin was closed with a running 4-0 Monocryl stitch. The 5 mm trocar sites were closed with interrupted 4-0 Monocryl sutures. Dermabond and sterile dressings were applied. All counts were complete and correct at the end of the case. The patient tolerated the procedure well and was transferred to the PACU in stable condition. KENIA / SANDY /[id number]
== END 2020-11-23 14:35 | disposition home or self-care (01) ==
LOC: MW.SDS 08:55
PROVIDERS: ATTEND Surgery
DX: K80.10 Calculus of gallbladder with chronic cholecystitis without obstruction (principal); K66.0 Peritoneal adhesions (postprocedural) (postinfection); K29.70 Gastritis, unspecified, without bleeding; Q43.9 Congenital malformation of intestine, unspecified; I10 Essential (primary) hypertension; R73.03 Prediabetes; K21.9 Gastro-esophageal reflux disease without esophagitis; Z01.812 Encounter for preprocedural laboratory examination; Z20.822 Contact with and (suspected) exposure to COVID-19; Z91.048 Other nonmedicinal substance allergy status; Z79.899 Other long term (current) drug therapy; Z98.890 Other specified postprocedural states
CPT/HCPCS: 47562; 88304; A9270; J0131; J0690; J1885; J2250; J2405; J2704; J3010; J3490; J7120; U0002; 00790

== ENCOUNTER 2020-12-02 21:59 | Emergency (ER) | payer MEDICARE ==
[2020-12-02] MEDS ORDERED: Morphine 4 MG/ML Syringe IVPUSH ONE (22:31)
[2020-12-02] MEDS ORDERED: Lactated Ringers 1,000 ML IV SCH (22:45)
[2020-12-02 23:23] LABS: BLOOD UREA NITROGEN,BUN 16 mg/dL (7.0-18.0); CARBON DIOXIDE,CO2 25.8 mmol/L (21.0-32.0); CHLORIDE,CL 92 mmol/L (98-107); GLUCOSE RANDOM 116 mg/dL (74-106); LIPASE 194 U/L (73-393); POTASSIUM,K 2.7 mmol/L (3.5-5.1); SODIUM,NA 129 mmol/L (136-145)
[2020-12-02] MEDS ORDERED: Potassium Chloride Riders 20 MEQ in Premix Bag 1 BAG IV ONE (23:30)
[2020-12-02] MEDS ORDERED: Iopamidol 755 MG/ML 500 ML Multipack Bottle IVPUSH STA (23:56)
--- NOTE | 2020-12-03 00:51 | CT ---
INDICATION: Abdominal pain. Status post laparoscopic cholecystectomy on 11/23/2020 COMPARISON: CT of the abdomen and pelvis with contrast from 10/03/2020 and ultrasound of the right upper quadrant from 11/20/2020. TECHNIQUE: CT examination of the abdomen and pelvis was performed with the uneventful intravenous administration of 80 cc of Isovue 370 while 2.5 mm thick axial sections were obtained from the lung bases through the pubic symphysis. Oral contrast was not administered. Please note that all CT scans at this facility use dose modulation, iterative reconstruction, and/or weight-based dosing when appropriate to reduce radiation dose to as low as reasonably achievable. FINDINGS: There are a few tiny bubbles of gas in the nondependent anterior right upper quadrant, consistent with recent surgery. There is a new mild amount of free fluid in the cul-de-sac, slightly more prominent on the right, nonspecific. This is probably related to recent surgery. In the abdomen, the liver there is a stable vague low density region in the medial segment of the left lobe of the liver adjacent to the falciform ligament, consistent with a hemangioma or focal fatty infiltration. This is a common incidental finding and requires no further followup. The spleen, pancreas, and adrenals are normal in appearance. There is a stable 2.1 centimeter cyst arising from the interpolar region of the right kidney. The kidneys are otherwise normal in appearance. During the interval, the gallbladder has been resected. There is no sign of any fluid collection or inflammatory process in the gallbladder fossa to suggest any postoperative complication. The common bile duct is nondilated. The abdominal aorta is normal in caliber with no sign of dilatation. There is no sign of retroperitoneal mass or adenopathy. The stomach, loops of small bowel, and colon in the abdomen are normal in appearance. The retrocecal appendix extends superiorly along the right kidney to reach the inferior margin of the liver. It is normal in appearance with no sign of any inflammatory process. There is stable mild sigmoid diverticulosis without evidence of diverticulitis. The loops of small bowel and colon in the pelvis are otherwise normal in appearance. The uterus and adnexal regions are normal in appearance. The urinary bladder is normal in appearance. There is no sign of pelvic or inguinal mass or adenopathy. There is mild patchy dependent atelectasis in the posterior right lung base, improved compared to the previous study. The mild patchy dependent atelectasis in the left lung base has resolved. Again seen is moderate L1-2 and mild L2-3 disc degenerative disease. IMPRESSION: Minimal free air in the nondependent right upper quadrant and mild free fluid in the cul-de-sac in the pelvis, consistent with recent surgery. CT of the abdomen shows satisfactory changes of cholecystectomy, with no sign of any fluid or inflammatory process in the gallbladder fossa. No sign of biliary ductal dilatation. CT of the pelvis shows mild sigmoid diverticulosis with no sign of diverticulitis. Please note that all CT scans at this facility use dose modulation, iterative reconstruction, and/or weight-based dosing when appropriate to reduce radiation dose to as low as reasonably achievable. Dictated by Tj Suh MD @ Dec 03 2020 12:37AM Signed by Dr. Tj Suh @ Dec 03 2020 12:49AM
--- NOTE | 2020-12-03 01:16 | EDM.PDOC ---
ED HPI GENERAL MEDICAL PROBLEM - General Chief Complaint: Abdominal Pain Stated Complaint: POST SURGICAL PAIN Time Seen by Provider: 12/02/20 22:02 - History of Present Illness INITIAL COMMENTS - FREE TEXT/NARRATIVE: CHIEF COMPLAINT(S): Abdominal pain HISTORY OF PRESENT ILLNESS: This is a 70-year-old woman with a recent cholecystectomy who comes to the emergency department with a chief complaint of abdominal pain. The patient states that approximately 1 week ago she had her gallbladder removed. She states that postoperatively she did fine however over the last couple days she has been experiencing increased pain throughout her abdomen. She denies any fevers or chills, nausea, vomiting, or diarrhea. She states that her last bowel movement was today. She states that it was normal and nonbloody. She states that she has tried oxycodone x1 but has not yet tried any other pain medication. She has not had a lot to eat or drink but is able to tolerate p.o. She describes the pain in her abdomen is 10 out of 10 diffusely. She denies any radiation of this pain. She states that it hurts when she touches it but denies any pain when she eats. She denies any relieving factors. REVIEW OF SYSTEMS: Constitutional: Denies fever, chills. Eyes: Denies eye pain Ears, Nose, Mouth, & Throat: Denies earache Cardiovascular: Denies chest pain Respiratory: Denies shortness of breath Gastrointestinal: Positive for diffuse abdominal pain. Denies nausea, vomiting, diarrhea, hematochezia, hematemesis, bilious emesis Genitourinary: Denies hematuria Skin:Denies a rash MSK: Denies joint pain Neurological: Denies blurred vision Psychiatric: Denies depression PAST MEDICAL HISTORY: As per history of present illness and as reviewed below otherwise noncontributory. SURGICAL HISTORY: As per history of present illness and as reviewed below otherwise noncontributory. SOCIAL HISTORY: As per history of present illness and as reviewed below otherwise noncontributory. FAMILY HISTORY: As per history of present illness and as reviewed below otherwise noncontributory. EXAMINATION OF ORGAN SYSTEMS/BODY AREAS: Constitutional: Blood pressure is 168/68, heart rate 80, respiratory rate 16 with an oxygen saturation of 98% on room air. Temperature 37.1 General: Middle-aged woman who appears to be in a moderate amount of pain. Psychiatric: Appropriate mood and affect. Eyes: No scleral icterus or conjunctival erythema ENMT: Moist mucous membranes. No pharyngeal erythema Cardiovascular: Regular, rate, and rhythm. No gallops, murmurs, or rubs. Bilateral upper extremity pulses symmetric and intact. No peripheral edema. No JVD. Respiratory: Lungs clear to auscultation bilaterally. No wheezes, rales, or rhonchi. Gastrointestinal: Soft, diffusely tender to palpation, nondistended. No rebound or guarding. Normoactive bowel sounds Genitourinary: No suprapubic tenderness Musculoskeletal: Normal range of motion. Skin: Prior surgical sites appear clean, dry, intact without any purulence or surrounding erythema. Neurological: Alert, GCS 15 MEDICAL DECISION MAKING AND COURSE IN THE ED WITH INTERPRETATION/REVIEW OF DIAGNOSTIC STUDIES: This is a 70-year-old woman with a recent cholecystectomy who comes to the emergency department with acute postoperative pain who has diffuse tenderness to palpation without any rebound guarding. At this time given the recent surgery will obtain a CT abdomen pelvis to evaluate for any postoperative infection. Will obtain labs including CBC, CMP. We will provide the patient with 4 mg of IV morphine for pain relief and 1 L of lactated Ringer's bolus. We also obtain a lipase. We will make the patient n.p.o. in the chance that she may need repeat surgical intervention. Laboratory: CBC reveals a mild leukocytosis 11.49 which is just mildly above the normal without any left shift with normal indices. INR is normal. CMP reveals hyponatremia at 129, hypokalemia at 2.7, hypochloremia at 92 otherwise unremarkable. Lipase is normal. The radiological images were viewed by myself along with reading the report from the radiologist. CT abdomen pelvis with contrast does not reveal any acute intra-abdominal process. There is minimal free air in the nondependent right upper quadrant and mild free fluid in the cul-de-sac consistent with recent surgery. There is satisfactory changes of the cholecystectomy without any signs of fluid or inflammatory process in the fossa. No biliary ductal dilation. There is mild sigmoid diverticulosis without diverticulitis. After labs I did provide the patient with potassium IV for supplementation. At this time the patient reported significant improvement in her pain. This was prior to CT imaging. After CT I did discuss results with the patient. At this time she was amenable to discharge. I did discuss her that she needed to maintain adequate p.o. hydration with electrolyte supplements such as Pedialyte or Gatorade. I discussed with her that she should use Tylenol and Motrin for pain relief and then use oxycodone for breakthrough pain. I do believe that her pain is just likely secondary to inadequately treated postoperative pain. She was amenable to discharge at this time and had no further questions. She is to follow-up at her scheduled appointment with her surgeon. She is to return for any new or worsening symptoms DISPOSITION: The patient was discharged home in stable condition. The patient will follow up with general surgery at her scheduled appointment CONDITION: Fair PROCEDURES: None FINAL IMPRESSION(S)/DIAGNOSES: 1. Acute postoperative pain likely secondary to underdosed pain medication 2. Acute hypokalemia likely secondary to decreased p.o. intake. 2. Acute hyponatremia likely secondary to decreased p.o. intake 4. Acute hypochloremia likely secondary to decreased p.o. intake Sivakumar Neri M.D. generalized abdomen Pain Score (Numeric/FACES): 8 - Related Data Allergies Allergy/AdvReac Type Severity Reaction Status Date / Time No Known Allergies Allergy Verified 12/02/20 22:25 Home Meds: Home Meds Chlorthalidone 25 mg PO DAILY 10/03/20 [History] lisinopriL [Prinivil] 20 mg PO DAILY 10/03/20 [History] Pantoprazole [ProTONIX] 40 mg PO DAILY 10/26/20 [History] oxyCODONE HCl/Acetaminophen [Oxycodone-Acetaminophen 5-325] 1 - 2 tab PO Q4HR PRN 12/02/20 [History] Past Medical History HEENT History: Reports: Other (See Below) Other HEENT History: uses reading glasses, has upper dentures Cardiovascular History: Reports: Hypertension Respiratory History: Reports: None Gastrointestinal History: Reports: Cholelithiasis, Gastritis, GERD Other Gastrointestinal History: gallstones Genitourinary History: Reports: None, Renal Calculus 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: Musculoskeletal History: Reports: Arthritis, Fracture Other Musculoskeletal History: hx of fx left ankle Neurological History: Reports: None Psychiatric History: Reports: None Endocrine/Metabolic History: Other Endocrine/Metabolic History: prediabetic, states was on medication for diabetes in the past (over 4 months), have lost weight Hematologic History: Reports: None Immunologic History: Reports: None Oncologic (Cancer) History: Reports: None Dermatologic History: Reports: None - Infectious Disease History Infectious Disease History: Reports: Chicken Pox, Measles, Mumps - Past Surgical History Head Surgeries/Procedures: Reports: None HEENT Surgical History: Reports: None Cardiovascular Surgical History: Reports: None Respiratory Surgical History: Reports: None GI Surgical History: Reports: Colonoscopy, EGD Female Surgical History: Reports: Tubal Ligation Endocrine Surgical History: Reports: None Neurological Surgical History: Reports: None Musculoskeletal Surgical History: Reports: None Oncologic Surgical History: Reports: None Dermatological Surgical History: Reports: None Social & Family History - Family History Family Medical History: No Pertinent Family History - Caffeine Use Caffeine Use: Reports: Coffee - Recreational Drug Use Recreational Drug Use: No ED ROS GENERAL - Review of Systems Review Of Systems: See Below ED EXAM, GENERAL - Physical Exam Exam: See Below Course - Vital Signs Last Recorded V/S: Last Vital Signs Temp 37.1 C 12/02/20 22:27 Pulse 70 12/03/20 03:20 Resp 18 12/03/20 03:20 BP 140/52 L 12/03/20 03:20 Pulse Ox 97 12/03/20 03:20 - Orders/Labs/Meds Labs: Laboratory Tests 12/02/20 12/02/20 12/02/20 Range/Units 22:49 22:49 22:49 WBC 11.49 H (4.0-11.0) K/uL RBC 4.83 (4.30-5.90) M/uL Hgb 15.2 (12.0-16.0) g/dL Hct 42.4 (36.0-46.0) % MCV 87.8 (80.0-98.0) fL MCH 31.5 (27.0-32.0) pg MCHC 35.8 (31.0-37.0) g/dL RDW Std Deviation 45.4 (28.0-62.0) fl RDW Coeff of Dwight 14 (11.0-15.0) % Plt Count 358 (150-400) K/uL MPV 10.90 (7.40-12.00) fL Neut % (Auto) 56.9 (48.0-80.0) % Lymph % (Auto) 34.9 (16.0-40.0) % Craven % (Auto) 7.0 (0.0-15.0) % Eos % (Auto) 1.0 (0.0-7.0) % Baso % (Auto) 0.2 (0.0-1.5) % Neut # (Auto) 6.5 H (1.4-5.7) K/uL Lymph # (Auto) 4.0 H (0.6-2.4) K/uL Craven # (Auto) 0.8 (0.0-0.8) K/uL Eos # (Auto) 0.1 (0.0-0.7) K/uL Baso # (Auto) 0.0 (0.0-0.1) K/uL Nucleated RBC % 0.0 /100WBC Nucleated RBCs # 0 K/uL INR 1.05 Sodium 129 L (136-145) mmol/L Potassium 2.7 L (3.5-5.1) mmol/L Chloride 92 L (98-107) mmol/L Carbon Dioxide 25.8 (21.0-32.0) mmol/L BUN 16 (7.0-18.0) mg/dL Creatinine 0.9 (0.6-1.0) mg/dL Est Cr Clr Drug Dosing 42.97 mL/min Estimated GFR (MDRD) > 60.0 ml/min Glucose 116 H (74-106) mg/dL Calcium 9.3 (8.5-10.1) mg/dL Total Bilirubin 0.3 (0.2-1.0) mg/dL AST 21 (15-37) IU/L ALT 25 (14-63) IU/L Alkaline Phosphatase 67 (46-116) U/L Total Protein 7.5 (6.4-8.2) g/dL Albumin 3.6 (3.4-5.0) g/dL Globulin 3.9 (2.6-4.0) g/dL Albumin/Globulin Ratio 0.9 (0.9-1.6) Lipase 194 (73-393) U/L Meds: Medications Discontinued Medications Generic Name Dose Route Start Last Admin Trade Name Freq PRN Reason Stop Dose Admin Lactated Ringer's 1,000 mls @ 150 mls/hr 12/02/20 22:45 12/02/20 22:50 Ringers, Lactated IV 150 mls/hr ASDIRECTED HENNA Administration Potassium Chloride 20 meq/ 50 mls @ 25 mls/hr 12/02/20 23:30 12/03/20 00:47 Premix IV 12/03/20 01:29 25 mls/hr ONETIME ONE Administration Iopamidol 80 ml 12/02/20 23:56 12/03/20 01:09 Isovue Multipack-370 (76%) IVPUSH 12/02/20 23:57 80 ml ONETIME STA Administration Morphine Sulfate 4 mg 12/02/20 22:31 12/02/20 22:50 Morphine IVPUSH 12/02/20 22:32 4 mg ONETIME ONE Administration Departure - Departure Time of Disposition: 03:05 Disposition: Home, Self-Care 01 Condition: Fair Clinical Impression: Post-op pain - Discharge Information *PRESCRIPTION DRUG MONITORING PROGRAM REVIEWED*: No *COPY OF PRESCRIPTION DRUG MONITORING REPORT IN PATIENT LUC: No Instructions: Pain Relief Before and After Surgery, Pain Medicine Instructions, [id number] Referrals: Alyssa Zurita GLASS SANDER [Primary Care Provider] - Forms: ED Department Discharge Additional Instructions: You were evaluated today on an emergent basis. At this time I do believe your abdominal pain is just postsurgical pain. Your work-up today did not reveal any abnormality. You did have low potassium, low sodium and low chloride likely due to decreased eating and fluid intake. I recommend a well-balanced diet and electrolyte solution such as Pedialyte. As discussed please use Tylenol and M otrin for pain relief and then use oxycodone for breakthrough pain. I do recommend you follow-up with your surgeon within 1 week. Please use: Tylenol 500mg every 6 hours (DO NOT TAKE MORE THAN 4000mg in 1 day) Ibuprofen 400mg every 6 hours (Take with food as it can cause ulcers, GI upset) Example schedule: 8:00 AM (Tylenol 500mg) 11:00 AM (Ibuprofen 400mg) 2:00 PM (Tylenol 500mg) 5:00 PM (Ibuprofen 400mg) *Use oxycodone (which has tylenol 325mg per tablet) as needed for severe pain. [facility] - General Surgery Professional [address], [address] [place] [address] The patient is informed of any results of their evaluation and diagnostic workup and all questions are answered. They are given discharge instructions and return precautions. The patient is stable for discharge. The patient states they understand and agree with the plan and that they will return if their symptoms get worse or if they have any new concerns. The following information is given to patients seen in the emergency department who are being discharged to home. This information is to outline your options for follow-up care. We provide all patients seen in our emergency department with a follow-up referral. The need for follow-up, as well as the timing and circumstances, are variable depending upon the specifics of your emergency department visit. If you don't have a primary care physician on staff, we will provide you with a referral. We always advise you to contact your personal physician following an emergency department visit to inform them of the circumstance of the visit and for follow-up with them and/or the need for any referrals to a consulting specialist. The emergency department will also refer you to a specialist when appropriate. This referral assures that you have the opportunity for follow-up care with a specialist. All of these measure are taken in an effort to provide you with optimal care, which includes your follow-up. Under all circumstances we always encourage you to contact your private physician who remains a resource for coordinating your care. When calling for follow-up care, please make the office aware that this follow-up is from your recent emergency room visit. If for any reason you are refused follow-up, please contact the [facility] Emergency Department at and asked to speak to the emergency department charge nurse. Sepsis Event Note (ED) - Evaluation Sepsis Screening Result: No Definite Risk
== END 2020-12-03 03:20 | disposition home or self-care (01) ==
LOC: MW.ED 21:59
DX: G89.18 Other acute postprocedural pain (principal); R10.84 Generalized abdominal pain; E87.6 Hypokalemia; E87.1 Hypo-osmolality and hyponatremia; E87.8 Other disorders of electrolyte and fluid balance, not elsewhere classified; I10 Essential (primary) hypertension; K21.9 Gastro-esophageal reflux disease without esophagitis; Z90.49 Acquired absence of other specified parts of digestive tract; Z79.899 Other long term (current) drug therapy
CPT/HCPCS: 36415; 74177; 80053; 83690; 85025; 85610; 96365; 96366; 96375; 99284; J2270; J3480; J7120; Q9967

== ENCOUNTER 2020-12-10 16:41 | Emergency (ER) | payer MEDICARE ==
[2020-12-10] MEDS ORDERED: Cephalexin 500 MG Cap PO ONE (18:55)
--- NOTE | 2020-12-10 18:56 | EDM.PDOC ---
ED HPI GENERAL MEDICAL PROBLEM - General Chief Complaint: Genitourinary Problem Stated Complaint: CONSTIPATION Time Seen by Provider: 12/10/20 16:46 Source of Information: Reports: Patient History Limitations: Reports: No Limitations - History of Present Illness INITIAL COMMENTS - FREE TEXT/NARRATIVE: HISTORY AND PHYSICAL: History of present illness: Patient is a 70-year-old female who presents to the ED today with concern of constipation secondary to pain medications. Patient states that she had her gallbladder removed by Dr. Root 2 to 3 weeks ago. Patient states that ever since being on the pain medications from the surgery, she has had issues with constipation. Patient states that she has occasionally taken [id number] laxatives to help her go to the bathroom but states that she has the feeling of poop being right at her rectum but has not been able to get it out. Patient states that she tried to digitally disimpact herself and cut her rectum with her nail and states that since then she has had pain and a little bit of bleeding when she wipes. Patient denies passing any large amount of clots or bleeding. Patient states she also thinks she has a urinary tract infection as she has some slight discomfort with urination. Patient denies any abdominal pain or any other symptoms or concerns. Patient denies fever, chills, chest pain, shortness of breath, or cough. Denies headache, neck stiff ness, change in vision, syncope, or near syncope. Denies nausea, vomiting, abdominal pain, diarrhea. Has not noted any blood in urine. Patient has been eating and drinking appropriately. Review of systems: As per history of present illness and below otherwise all systems reviewed and negative. Past medical history: As per history of present illness and as reviewed below otherwise noncontributory. Surgical history: As per history of present illness and as reviewed below otherwise noncontributory. Social history: See social history for further information Family history: As per history of present illness and as reviewed below otherwise noncontributory. Physical exam: General: Patient is alert, oriented, and in no acute distress. Patient sitting comfortably on exam table. Vitals stable and reviewed by me. HEENT: Atraumatic, normocephalic, pupils equal and reactive bilaterally, negative for conjunctival pallor or scleral icterus, mucous membranes moist, TMs normal bilaterally, throat clear, neck supple, nontender, trachea midline. No drooling or trismus noted. No meningeal signs. No hot potato voice noted. Lungs: Clear to auscultation, breath sounds equal bilaterally, chest nontender. Heart: S1S2, regular rate and rhythm without overt murmur Abdomen: Soft, nondistended, nontender. Negative for masses or hepatosplenomegaly. Negative for costovertebral tenderness. Pelvis: Stable nontender. Genitourinary: Assistant Media Planner at bedside Cary Abdullahi. External genitalia is grossly unremarkable. There is a small amount of white vaginal discharge in the vaginal vault. Cervical os is closed with negative cervical motion tenderness. Uterus is nontender. No adnexal tenderness. Rectal: Assistant Media Planner at bedside [facility]. There is a small abrasion noted of the 8 o clock position just outside the rectum without active bleeding. There is a hard stool ball noted in the rectal vault. No hemorrhoids or masses noted. Skin: Intact, warm, dry. No lesions or rashes noted. Extremities: Atraumatic, negative for cords or calf pain. Neurovascular unremarkable. Neuro: Awake, alert, oriented. Cranial nerves II through XII unremarkable. Cerebellum unremarkable. Motor and sensory unremarkable throughout. Exam nonfocal. Notes: On initial exam, patient does not have any bleeding of her rectum or her vagina. She does have a hard stool ball in the rectal vault with an abrasion made by her trying to digitally disimpact herself. Will perform enema with reassessment of patients symptoms. Patient did have a large bowel movement with enema without blood. No blood with wiping. Patient expresses complete resolution of her symptoms today. Patient does have a slight urinary tract infection so will prescribe Keflex at this time. Discussed importance for follow-up with her primary care provider. Signs and symptoms that were prompt return to the ED thoroughly discussed with patient. Voices understanding and is agreeable to plan of care. Denies any further questions or concerns at this time. Diagnostics: UA w culture Therapeutics: Enema Prescription: Keflex Impression: Constipation Urinary tract infection Plan: 1. Take medication as prescribed. You can alternate ibuprofen and Tylenol as directed for pain and discomfort. 2. Follow-up with a primary care provider as discussed. Return to the ED as needed and as discussed. Definitive disposition and diagnosis as appropriate pending reevaluation and review of above. Bladder Pain Score (Numeric/FACES): 5 - Related Data Allergies Allergy/AdvReac Type Severity Reaction Status Date / Time No Known Allergies Allergy Verified 12/10/20 16:52 Home Meds: Home Meds Chlorthalidone 25 mg PO DAILY 12/10/20 [History] Sucralfate [Carafate] 1 g PO DAILY 12/10/20 [History] cephALEXin [Keflex] 500 mg PO Q8H 5 Days #10 cap 12/10/20 [Rx] lisinopriL [Lisinopril] 20 mg PO DAILY 12/10/20 [History] Past Medical History HEENT History: Reports: Other (See Below) Other HEENT History: uses reading glasses, has upper dentures Cardiovascular History: Reports: Hypertension Respiratory History: Reports: None Gastrointestinal History: Reports: Cholelithiasis, Gastritis, GERD Other Gastrointestinal History: gallstones Genitourinary History: Reports: None, Renal Calculus 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: Musculoskeletal History: Reports: Arthritis, Fracture Other Musculoskeletal History: hx of fx left ankle Neurological History: Reports: None Psychiatric History: Reports: None Endocrine/Metabolic History: Other Endocrine/Metabolic History: prediabetic, states was on medication for diabetes in the past (over 4 months), have lost weight Hematologic History: Reports: None Immunologic History: Reports: None Oncologic (Cancer) History: Reports: None Dermatologic History: Reports: None - Infectious Disease History Infectious Disease History: Reports: Chicken Pox, Measles, Mumps - Past Surgical History Head Surgeries/Procedures: Reports: None HEENT Surgical History: Reports: None Cardiovascular Surgical History: Reports: None Respiratory Surgical History: Reports: None GI Surgical History: Reports: Colonoscopy, EGD Female Surgical History: Reports: Tubal Ligation Endocrine Surgical History: Reports: None Neurological Surgical History: Reports: None Musculoskeletal Surgical History: Reports: None Oncologic Surgical History: Reports: None Dermatological Surgical History: Reports: None Social & Family History - Family History Family Medical History: No Pertinent Family History - Tobacco Use Tobacco Use Status *Q: Current Every Day Tobacco User Years of Tobacco use: 30 Packs/Tins Daily: 0.1 - Caffeine Use Caffeine Use: Reports: Coffee - Recreational Drug Use Recreational Drug Use: No ED ROS GENERAL - Review of Systems Review Of Systems: Comprehensive ROS is negative, except as noted in HPI. ED EXAM, GENERAL - Physical Exam Exam: See Below (see dictation) Course - Vital Signs Last Recorded V/S: Last Vital Signs Temp 97.1 F 12/10/20 19:13 Pulse 113 H 12/10/20 19:13 Resp 20 12/10/20 19:13 BP 104/45 L 12/10/20 19:13 Pulse Ox 98 12/10/20 19:13 - Orders/Labs/Meds Orders: Active Orders 24 hr Category Date Time Status CULTURE URINE [RM] Stat Lab 12/10/20 16:50 Received Labs: Laboratory Tests 12/10/20 Range/Units 16:50 Urine Color YELLOW Urine Appearance CLEAR Urine pH 7.0 (5.0-8.0) Ur Specific Andrews <= 1.005 (1.001-1.035) Urine Protein NEGATIVE (NEGATIVE) mg/dL Urine Glucose (UA) NEGATIVE (NEGATIVE) mg/dL Urine Ketones NEGATIVE (NEGATIVE) mg/dL Urine Occult Blood TRACE-INTACT H (NEGATIVE) Urine Nitrite NEGATIVE (NEGATIVE) Urine Bilirubin NEGATIVE (NEGATIVE) Urine Urobilinogen 0.2 (<2.0) EU/dL Ur Leukocyte Esterase SMALL H (NEGATIVE) Urine RBC 0-2 (0-2/HPF) Urine WBC 2-5 (0-5/HPF) Ur Epithelial Cells FEW (NONE-FEW) Urine Bacteria FEW (NEGATIVE) Meds: Medications Discontinued Medications Generic Name Dose Route Start Last Admin Trade Name Maldonado PRN Reason Stop Dose Admin Cephalexin 500 mg 12/10/20 18:55 12/10/20 19:17 Cephalexin 500 Mg Cap PO 12/10/20 18:56 500 mg ONETIME ONE Administration Departure - Departure Time of Disposition: 18:55 Disposition: Home, Self-Care 01 Clinical Impression: Urinary tract infection Qualifiers: Urinary tract infection type: acute cystitis Hematuria presence: without hematuria Qualified Code(s): N30.00 - Acute cystitis without hematuria Constipation Qualifiers: Constipation type: drug induced constipation Qualified Code(s): K59.03 - Drug induced constipation - Discharge Information Prescriptions: cephALEXin [Keflex] 500 mg PO Q8H 5 Days #10 cap Instructions: Constipation, Adult, [id number], Urinary Tract Infection, Adult, [id number] Referrals: Alyssa Zurita EXTRACTING MACHINE OPERATOR [Primary Care Provider] - Forms: ED Department Discharge Additional Instructions: The following information is given to patients seen in the emergency department who are being discharged to home. This information is to outline your options for follow-up care. We provide all patients seen in our emergency department with a follow-up referral. The need for follow-up, as well as the timing and circumstances, are variable depending upon the specifics of your emergency department visit. If you don't have a primary care physician on staff, we will provide you with a referral. We always advise you to contact your personal physician following an emergency department visit to inform them of the circumstance of the visit and for follow-up with them and/or the need for any referrals to a consulting specialist. The emergency department will also refer you to a specialist when appropriate. This referral assures that you have the opportunity for follow-up care with a specialist. All of these measure are taken in an effort to provide you with optimal care, which includes your follow-up. Under all circumstances we always encourage you to contact your private physician who remains a resource for coordinating your care. When calling for follow-up care, please make the office aware that this follow-up is from your recent emergency room visit. If for any reason you are refused follow-up, please contact the [facility] Emergency Department at and asked to speak to the emergency department charge nurse. [facility] [address] [place] [address] [address] 1. Take medication as prescribed. You can alternate ibuprofen and Tylenol as directed for pain and discomfort. 2. Follow-up with a primary care provider as discussed. Return to the ED as needed and as discussed. Sepsis Event Note (ED) - Evaluation Sepsis Screening Result: No Definite Risk - Focused Exam Vital Signs: Vital Signs Temp Pulse Resp BP Pulse Ox 12/10/20 19:13 97.1 F 113 H 20 104/45 L 98 12/10/20 16:54 98.2 F 106 H 16 140/65 98 - My Orders Last 24 Hours: My Active Orders 12/10/20 16:50 CULTURE URINE [RM] Stat - Assessment/Plan Last 24 Hours: My Active Orders 12/10/20 16:50 CULTURE URINE [RM] Stat
== END 2020-12-10 19:21 | disposition home or self-care (01) ==
LOC: MW.ED 16:41
DX: K59.00 Constipation, unspecified (principal); N39.0 Urinary tract infection, site not specified; K21.9 Gastro-esophageal reflux disease without esophagitis; Z79.899 Other long term (current) drug therapy; Z72.0 Tobacco use
CPT/HCPCS: 81001; 87086; 87088; 87186; 99283; A9270

== ENCOUNTER 2021-02-02 11:59 | Emergency (ER) | payer MEDICARE ==
[2021-02-02] MEDS ORDERED: Morphine 4 MG/ML Syringe IVPUSH ONE (12:20)
--- NOTE | 2021-02-02 12:27 | EDM.PDOC ---
ED HPI GENERAL MEDICAL PROBLEM - General Chief Complaint: Abdominal Pain Stated Complaint: STOMACH PAIN Time Seen by Provider: 02/02/21 12:03 Source of Information: Reports: Patient History Limitations: Reports: No Limitations - History of Present Illness INITIAL COMMENTS - FREE TEXT/NARRATIVE: Patient is a 70-year-old female who presents today for left lower quadrant pain is been present for the past 3 days. Patient did mention that the pain can and radiates to her suprapubic area. Patient states nothing makes the pain better or worse. Patient denies any nausea or vomiting or diarrhea. Patient was able to tolerate a small amount of food this morning. Patient denies any fever chills or urinary symptoms. abdomen Pain Score (Numeric/FACES): 8 - Related Data Allergies Allergy/AdvReac Type Severity Reaction Status Date / Time No Known Allergies Allergy Verified 02/02/21 12:12 Home Meds: Home Meds Chlorthalidone 25 mg PO DAILY 12/10/20 [History] Sucralfate [Carafate] 1 g PO DAILY 12/10/20 [History] cephALEXin [Keflex] 500 mg PO Q8H 5 Days #10 cap 12/10/20 [Rx] lisinopriL [Lisinopril] 20 mg PO DAILY 12/10/20 [History] Lovastatin 20 mg PO DAILY 02/02/21 [History] Mupirocin Oint [Bactroban Oint] 1 applicful TOP TID 02/02/21 [History] Pantoprazole [ProTONIX] 40 mg PO DAILY 02/02/21 [History] Potassium Chloride 10 meq PO BID 02/02/21 [History] Past Medical History HEENT History: Reports: Other (See Below) Other HEENT History: uses reading glasses, has upper dentures Cardiovascular History: Reports: Hypertension Respiratory History: Reports: None Gastrointestinal History: Reports: Cholelithiasis, Gastritis, GERD Other Gastrointestinal History: gallstones Genitourinary History: Reports: None, Renal Calculus 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: Musculoskeletal History: Reports: Arthritis, Fracture Other Musculoskeletal History: hx of fx left ankle Neurological History: Reports: None Psychiatric History: Reports: None Endocrine/Metabolic History: Other Endocrine/Metabolic History: prediabetic, states was on medication for diabetes in the past (over 4 months), have lost weight Hematologic History: Reports: None Immunologic History: Reports: None Oncologic (Cancer) History: Reports: None Dermatologic History: Reports: None - Infectious Disease History Infectious Disease History: Reports: Chicken Pox, Measles, Mumps - Past Surgical History Head Surgeries/Procedures: Reports: None HEENT Surgical History: Reports: None Cardiovascular Surgical History: Reports: None Respiratory Surgical History: Reports: None GI Surgical History: Reports: Colonoscopy, EGD Female Surgical History: Reports: Tubal Ligation Endocrine Surgical History: Reports: None Neurological Surgical History: Reports: None Musculoskeletal Surgical History: Reports: None Oncologic Surgical History: Reports: None Dermatological Surgical History: Reports: None Social & Family History - Family History Family Medical History: No Pertinent Family History - Caffeine Use Caffeine Use: Reports: Coffee ED ROS GENERAL - Review of Systems Review Of Systems: See Below Constitutional: Reports: No Symptoms HEENT: Reports: No Symptoms Respiratory: Reports: No Symptoms Cardiovascular: Reports: No Symptoms Endocrine: Reports: No Symptoms GI/Abdominal: Reports: Abdominal Pain : Reports: No Symptoms Musculoskeletal: Reports: No Symptoms Skin: Reports: No Symptoms Neurological: Reports: No Symptoms Psychiatric: Reports: No Symptoms Hematologic/Lymphatic: Reports: No Symptoms Immunologic: Reports: No Symptoms ED EXAM, GI/ABD - Physical Exam Exam: See Below Exam Limited By: No Limitations General Appearance: Alert, WD/WN, No Apparent Distress Respiratory/Chest: No Respiratory Distress, Lungs Clear Cardiovascular: Normal Peripheral Pulses, Regular Rate, Rhythm GI/Abdominal Exam: Normal Bowel Sounds, Soft, Tender (LLQ) Extremities: Normal Inspection Neurological: Alert, Oriented, Normal Cognition, Normal Gait Course - Vital Signs Last Recorded V/S: Last Vital Signs Temp 97.3 F 02/02/21 12:02 Pulse 66 02/02/21 14:00 Resp 16 02/02/21 14:00 BP 129/41 L 02/02/21 14:00 Pulse Ox 98 02/02/21 14:00 - Orders/Labs/Meds Orders: Active Orders 24 hr Category Date Time Status UA W/DILCIA RFLX IF INDICATED [URIN] Stat Lab 02/02/21 13:12 Ordered Labs: Laboratory Tests 02/02/21 02/02/21 02/02/21 Range/Units 12:19 12:19 12:19 WBC 10.89 (4.0-11.0) K/uL RBC 4.13 L (4.30-5.90) M/uL Hgb 12.8 (12.0-16.0) g/dL Hct 38.7 (36.0-46.0) % MCV 93.7 (80.0-98.0) fL MCH 31.0 (27.0-32.0) pg MCHC 33.1 (31.0-37.0) g/dL RDW Std Deviation 56.2 (28.0-62.0) fl RDW Coeff of Dwight 16 H (11.0-15.0) % Plt Count 330 (150-400) K/uL MPV 10.80 (7.40-12.00) fL Neut % (Auto) 71.0 (48.0-80.0) % Lymph % (Auto) 23.0 (16.0-40.0) % Clinch % (Auto) 5.2 (0.0-15.0) % Eos % (Auto) 0.5 (0.0-7.0) % Baso % (Auto) 0.3 (0.0-1.5) % Neut # (Auto) 7.7 H (1.4-5.7) K/uL Lymph # (Auto) 2.5 H (0.6-2.4) K/uL Clinch # (Auto) 0.6 (0.0-0.8) K/uL Eos # (Auto) 0.1 (0.0-0.7) K/uL Baso # (Auto) 0.0 (0.0-0.1) K/uL Nucleated RBC % 0.0 /100WBC Nucleated RBCs # 0 K/uL Lactate 1.2 (0.20-2.00) mmol/L Sodium 135 L (136-145) mmol/L Potassium 3.6 (3.5-5.1) mmol/L Chloride 100 (98-107) mmol/L Carbon Dioxide 24.9 (21.0-32.0) mmol/L BUN 13 (7.0-18.0) mg/dL Creatinine 0.9 (0.6-1.0) mg/dL Est Cr Clr Drug Dosing 42.97 mL/min Estimated GFR (MDRD) > 60.0 ml/min Glucose 147 H (74-106) mg/dL Calcium 9.1 (8.5-10.1) mg/dL Phosphorus 3.9 (2.6-4.7) mg/dL Magnesium 1.9 (1.8-2.4) mg/dL Total Bilirubin 0.2 (0.2-1.0) mg/dL AST 18 (15-37) IU/L ALT 20 (14-63) IU/L Alkaline Phosphatase 87 (46-116) U/L Creatine Kinase 57 (26-308) U/L Total Protein 7.5 (6.4-8.2) g/dL Albumin 3.5 (3.4-5.0) g/dL Globulin 4.0 (2.6-4.0) g/dL Albumin/Globulin Ratio 0.9 (0.9-1.6) Lipase 101 (73-393) U/L Meds: Medications Discontinued Medications Generic Name Dose Route Start Last Admin Trade Name Freq PRN Reason Stop Dose Admin Iopamidol 100 ml 02/02/21 13:26 02/02/21 13:26 Iopamidol 755 Mg/Ml 100 Ml Bottle IVPUSH 02/02/21 13:27 100 ml ONETIME ONE Administration Morphine Sulfate 4 mg 02/02/21 12:20 02/02/21 12:30 Morphine 4 Mg/Ml Syringe IVPUSH 02/02/21 12:21 4 mg ONETIME ONE Administration - Re-Assessments/Exams Free Text/Narrative Re-Assessment/Exam: 02/02/21 14:18 Patient CAT scan reviewed no identified count causes the patient pain. Patient will be discharged home to follow-up with her primary care physician. Departure - Departure Time of Disposition: 14:18 Disposition: Home, Self-Care 01 Condition: Good Clinical Impression: Abdominal pain Qualifiers: Abdominal location: right upper quadrant Qualified Code(s): R10.11 - Right upper quadrant pain - Discharge Information *PRESCRIPTION DRUG MONITORING PROGRAM REVIEWED*: Not Applicable *COPY OF PRESCRIPTION DRUG MONITORING REPORT IN PATIENT LUC: Not Applicable Instructions: Abdominal Pain, Adult, [id number] Referrals: Alyssa Zurita NP [Primary Care Provider] - Forms: ED Department Discharge Additional Instructions: The following information is given to patients seen in the emergency department who are being discharged to home. This information is to outline your options for follow-up care. We provide all patients seen in our emergency department with a follow-up referral. The need for follow-up, as well as the timing and circumstances, are variable depending upon the specifics of your emergency department visit. If you don't have a primary care physician on staff, we will provide you with a referral. We always advise you to contact your personal physician following an emergency department visit to inform them of the circumstance of the visit and for follow-up with them and/or the need for any referrals to a consulting specialist. The emergency department will also refer you to a specialist when appropriate. This referral assures that you have the opportunity for follow-up care with a specialist. All of these measure are taken in an effort to provide you with optimal care, which includes your follow-up. Under all circumstances we always encourage you to contact your private phys ician who remains a resource for coordinating your care. When calling for follow-up care, please make the office aware that this follow-up is from your recent emergency room visit. If for any reason you are refused follow-up, please contact the [facility] Emergency Department at and asked to speak to the emergency department charge nurse. Please follow up with your primary care physician. If you do not have a primary care physician, see below: [facility] [address] [place] [id number] [address] [facility] [address] [place] [id number] Please follow-up with your primary care physician. If you have any other increased pain nausea vomiting you can follow-up in the ER as well. Your primary care physician gave you medications for the pain already I would continue to take those medications. Sepsis Event Note (ED) - Evaluation Sepsis Screening Result: No Definite Risk - Focused Exam Vital Signs: Vital Signs Temp Pulse Resp BP Pulse Ox 02/02/21 14:00 66 16 129/41 L 98 02/02/21 12:02 97.3 F 66 18 146/45 H 99 - My Orders Last 24 Hours: My Active Orders 02/02/21 13:12 UA W/DILCIA RFLX IF INDICATED [URIN] Stat - Assessment/Plan Last 24 Hours: My Active Orders 02/02/21 13:12 UA W/DILCIA RFLX IF INDICATED [URIN] Stat Plan: Patient is a 70-year-old female who presents today for left lower quadrant pain. Will obtain CT labs provide pain control and reassess.
[2021-02-02 12:54] LABS: BLOOD UREA NITROGEN,BUN 13 mg/dL (7.0-18.0); CARBON DIOXIDE,CO2 24.9 mmol/L (21.0-32.0); CHLORIDE,CL 100 mmol/L (98-107); GLUCOSE RANDOM 147 mg/dL (74-106); LIPASE 101 U/L (73-393); POTASSIUM,K 3.6 mmol/L (3.5-5.1); SODIUM,NA 135 mmol/L (136-145)
[2021-02-02] MEDS ORDERED: Iopamidol 755 Mg/ML 100 ML Bottle IVPUSH ONE (13:26)
--- NOTE | 2021-02-02 14:01 | CT ---
INDICATION: Left lower quadrant pain TECHNIQUE: CT abdomen and pelvis acquired with IV contrast. 100 cc Isovue 370 COMPARISON: 12/02/2020 FINDINGS: Lower chest: Unremarkable. Liver: Unremarkable. Spleen: Unremarkable. Pancreas: Unremarkable. Gallbladder and bile ducts: Cholecystectomy. Kidneys: Stable right renal cyst. Adrenal glands: Unremarkable. GI tract: Sigmoid diverticulosis. Vascular structures: Unremarkable. Lymph nodes: Unremarkable. Miscellaneous: Unremarkable. No free air or significant free fluid. Pelvic Organs: Unremarkable. Bones: Degenerative changes thoracolumbar spine. IMPRESSION: No definitive findings to explain the patient`s left lower quadrant pain. No evidence for diverticulitis. Cholecystectomy. Please note that all CT scans at this facility use dose modulation, iterative reconstruction, and/or weight-based dosing when appropriate to reduce radiation dose to as low as reasonably achievable. Dictated by Guilherme Rosa MD @ 02/02/2021 2:00:[address] Guilherme Rosa @ Feb 02 2021 2:00PM
== END 2021-02-02 14:58 | disposition home or self-care (01) ==
LOC: MW.ED 11:59
DX: R10.11 Right upper quadrant pain (principal); I10 Essential (primary) hypertension; K21.9 Gastro-esophageal reflux disease without esophagitis; Z79.899 Other long term (current) drug therapy
CPT/HCPCS: 36415; 74177; 80053; 81001; 82550; 83605; 83690; 83735; 84100; 85025; 96374; 99284; J2270; Q9967; 99283

== ENCOUNTER 2021-03-31 16:25 | Emergency (ER) | payer MEDICARE, OTHER ==
[2021-03-31] MEDS ORDERED: Sodium Chloride 0.9% 10 ML Syringe FLUSH PRN (17:04)
[2021-03-31] MEDS ORDERED: Alum Hydrox/Mag Hydrox/Simeth 15 ML, Lidocaine 2% 5 ML PO ONE ×2 (17:04)
[2021-03-31] MEDS ORDERED: Sodium Chloride 0.9% 2.5 ML Syringe FLUSH PRN (17:04)
[2021-03-31] MEDS ORDERED: Ondansetron 4 MG/2 ML SDV IVPUSH ONE (17:04)
[2021-03-31] MEDS ORDERED: Sodium Chloride 0.9% 1,000 ML IV ONE (17:04)
[2021-03-31 17:59] LABS: BLOOD UREA NITROGEN,BUN 12 mg/dL (7.0-18.0); CARBON DIOXIDE,CO2 25.6 mmol/L (21.0-32.0); GLUCOSE RANDOM 138 mg/dL (74-106); LIPASE 169 U/L (73-393); POTASSIUM,K 3.2 mmol/L (3.5-5.1); SODIUM,NA 138 mmol/L (136-145)
[2021-03-31 18:08] LABS: CHLORIDE,CL 103 mmol/L (98-107)
--- NOTE | 2021-03-31 18:39 | EDM.PDOC ---
ED HPI GENERAL MEDICAL PROBLEM - General Chief Complaint: Abdominal Pain Stated Complaint: ABDOMINAL PAIN Time Seen by Provider: 03/31/21 16:35 - History of Present Illness INITIAL COMMENTS - FREE TEXT/NARRATIVE: HISTORY AND PHYSICAL: History of present illness: This is a 70-year-old female who is status post cholecystectomy approximately 5 months ago who presents ER today complaining of midepigastric abdominal pain. Patient reports that she has a history significant for reflux and GERD but feels that her medications not working as well as it had been in the past. Patient reports that she had recently gotten an endoscopy and had requested her doctor for second 1 in the scheduled for second endoscopy in [place] sometime next month. Patient denies any recent fevers, shakes, chills, nausea, vomiting, diarrhea, dysuria, frequency, urgency, chest pain, shortness of breath. Patient has any pain rating to her back. Patient has any melena or bright red blood per rectum. Patient denies any hematuria. Patient reports that her last p.o. intake was earlier today. Review of systems: As per history of present illness and below otherwise all systems reviewed and negative. Past medical history: As per history of present illness and as reviewed below otherwise noncontributory. Surgical history: As per history of present illness and as reviewed below otherwise noncontributory. Social history: No reported history of drug abuse. Family history: As per history of present illness and as reviewed below otherwise noncontributory. Physical exam: This patient was seen and evaluated during the 2019 SARS-CoV-2 novel coronavirus pandemic period. Community viral transmission is ongoing at time of this encounter and the emergency department is operating under pandemic response procedures. Constitutional: Patient is oriented to person, place, and time. Appears well- developed and well-nourished. No distress. HEENT: Moist mucous membranes Head: Normocephalic and atraumatic Eyes: Right eye exhibits no discharge. Left eye exhibits no discharge. No scleral icterus Neck: Normal range of motion. No tracheal deviation present. Cardiovascular: Normal rate and regular rhythm. Pulmonary: Effort normal, no respiratory distress. Abd: Soft, nondistended, no rebound/guarding, no psoas or obturator signs, no tenderness at Mcberney's point, no Simpson's sign. Pt does not present with an exam that would be consistent with an acute surgical abdomen at this time, tenderness palpation midepigastric region. Musculoskeletal: Normal range of motion Neurologic: Alert and oriented to person, place and time. Skin: [place], warm and dry. Psychiatric: Normal mood and affect. Behavior is normal. Judgment and thought content normal. Nursing note and vital signs have been reviewed Diagnostics: CBC, CMP, LFTs all within normal limits. CTA of the abdomen pelvis: Therapeutics: [] Assessment and plan: 70-year-old female who presents ER today complaining of abdominal pain and discomfort. Patient's pain is greatest in the mid epigastric region. Patient's labs are all within normal limits. Patient will get a CT scan of her abdomen pelvis for further evaluation of any significant abdominal pathology. Patient has been given a GI cocktail as well as Zofran and IV fluids here in the ED. Patient reevaluated at at 6:40 PM. Patient reports that her abdominal discomfort was almost completely resolved shortly after receiving the GI cocktail. Patient has been instructed to get Maalox [id number] to take as needed when she has pain. Patient also be given a prescription for Bentyl and Zofran help with her symptoms. Patient symptoms are most likely secondary to gastritis/GERD and will need to have reevaluation by her primary care doctor/GI specialist. Reassessment at the time of disposition demonstrates that the patient is in no acute distress. The patient has remained stable throughout the entire ED visit and is without objective evidence for acute process requiring urgent in tervention or hospitalization. The patient is stable for discharge, counseling is provided as documented above, discussed symptomatic treatment and specific conditions for return. I have spoken with the patient/caregiver and discussed todays findings, in addition to providing specific details for the plan of care. Questions are answered and there is agreement with the plan. Definitive disposition and diagnosis as appropriate pending reevaluation and review of above. - Related Data Allergies Allergy/AdvReac Type Severity Reaction Status Date / Time No Known Allergies Allergy Verified 02/02/21 12:12 Home Meds: Home Meds Chlorthalidone 25 mg PO DAILY 12/10/20 [History] Sucralfate [Carafate] 1 g PO DAILY 12/10/20 [History] cephALEXin [Keflex] 500 mg PO Q8H 5 Days #10 cap 12/10/20 [Rx] lisinopriL [Lisinopril] 20 mg PO DAILY 12/10/20 [History] Lovastatin 20 mg PO DAILY 02/02/21 [History] Mupirocin Oint [Bactroban Oint] 1 applicful TOP TID 02/02/21 [History] Pantoprazole [ProTONIX] 40 mg PO DAILY 02/02/21 [History] Potassium Chloride 10 meq PO BID 02/02/21 [History] Dicyclomine [Bentyl] 20 mg PO QIDACANDBED #20 tab 03/31/21 [Rx] Ondansetron [Zofran ODT] 4 mg PO Q6H PRN #12 tab.dis 03/31/21 [Rx] Past Medical History HEENT History: Reports: Other (See Below) Other HEENT History: uses reading glasses, has upper dentures Cardiovascular History: Reports: Hypertension Respiratory History: Reports: None Gastrointestinal History: Reports: Cholelithiasis, Gastritis, GERD Other Gastrointestinal History: gallstones Genitourinary History: Reports: Renal Calculus 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: Musculoskeletal History: Reports: Arthritis, Fracture Other Musculoskeletal History: hx of fx left ankle Neurological History: Reports: None Psychiatric History: Reports: None Endocrine/Metabolic History: Other Endocrine/Metabolic History: prediabetic, states was on medication for diabetes in the past (over 4 months), have lost weight Hematologic History: Reports: None Immunologic History: Reports: None Oncologic (Cancer) History: Reports: None Dermatologic History: Reports: None - Infectious Disease History Infectious Disease History: Reports: Chicken Pox, Measles, Mumps - Past Surgical History Head Surgeries/Procedures: Reports: None HEENT Surgical History: Reports: None Cardiovascular Surgical History: Reports: None Respiratory Surgical History: Reports: None GI Surgical History: Reports: Cholecystectomy, Colonoscopy, EGD Female Surgical History: Reports: Tubal Ligation Endocrine Surgical History: Reports: None Neurological Surgical History: Reports: None Musculoskeletal Surgical History: Reports: None Oncologic Surgical History: Reports: None Dermatological Surgical History: Reports: None Social & Family History - Family History Family Medical History: No Pertinent Family History - Caffeine Use Caffeine Use: Reports: Coffee - Recreational Drug Use Recreational Drug Use: No ED ROS GENERAL - Review of Systems Review Of Systems: See Below ED EXAM, GENERAL - Physical Exam Exam: See Below Course - Vital Signs Last Recorded V/S: Last Vital Signs Temp 97.8 F 03/31/21 16:33 Pulse 54 L 03/31/21 18:32 Resp 18 03/31/21 18:32 BP 153/56 H 03/31/21 18:32 Pulse Ox 98 03/31/21 18:32 - Orders/Labs/Meds Orders: Active Orders 24 hr Category Date Time Status Abdomen Pelvis wo Cont [CT] Stat Exams 03/31/21 17:04 Taken UA W/DILCIA RFLX IF INDICATED [URIN] Stat Lab 03/31/21 17:04 Ordered Sodium Chloride 0.9% [Saline Flush] Med 03/31/21 17:04 Active 10 ml FLUSH ASDIRECTED PRN Sodium Chloride 0.9% [Saline Flush] Med 03/31/21 17:04 Active 2.5 ml FLUSH ASDIRECTED PRN Saline Lock Insert [OM.PC] Stat Oth 03/31/21 17:04 Ordered Medication Orders Sodium Chloride (Sodium Chloride 0.9% 10 Ml Syringe) 10 ml FLUSH ASDIRECTED PRN PRN Reason: Keep Vein Open Last Admin: 03/31/21 17:27 Dose: 10 ml Documented by: [id number] Sodium Chloride (Sodium Chloride 0.9% 2.5 Ml Syringe) 2.5 ml FLUSH ASDIRECTED PRN PRN Reason: Keep Vein Open Last Admin: 03/31/21 17:27 Dose: 2.5 ml Documented by: [id number] Labs: Laboratory Tests 03/31/21 03/31/21 Range/Units 17:33 17:33 WBC 9.98 (4.0-11.0) K/uL RBC 3.97 L (4.30-5.90) M/uL Hgb 12.2 (12.0-16.0) g/dL Hct 36.4 (36.0-46.0) % MCV 91.7 (80.0-98.0) fL MCH 30.7 (27.0-32.0) pg MCHC 33.5 (31.0-37.0) g/dL RDW Std Deviation 49.5 (28.0-62.0) fl RDW Coeff of Dwight 15 (11.0-15.0) % Plt Count 325 (150-400) K/uL MPV 11.00 (7.40-12.00) fL Neut % (Auto) 59.7 (48.0-80.0) % Lymph % (Auto) 30.9 (16.0-40.0) % [place] % (Auto) 7.3 (0.0-15.0) % Eos % (Auto) 1.9 (0.0-7.0) % Baso % (Auto) 0.2 (0.0-1.5) % Neut # (Auto) 6.0 H (1.4-5.7) K/uL Lymph # (Auto) 3.1 H (0.6-2.4) K/uL [place] # (Auto) 0.7 (0.0-0.8) K/uL Eos # (Auto) 0.2 (0.0-0.7) K/uL Baso # (Auto) 0.0 (0.0-0.1) K/uL Nucleated RBC % 0.0 /100WBC Nucleated RBCs # 0 K/uL Sodium 138 (136-145) mmol/L Potassium 3.2 L (3.5-5.1) mmol/L Chloride 103 (98-107) mmol/L Carbon Dioxide 25.6 (21.0-32.0) mmol/L BUN 12 (7.0-18.0) mg/dL Creatinine 0.8 (0.6-1.0) mg/dL Est Cr Clr Drug Dosing TNP Estimated GFR (MDRD) > 60.0 ml/min Glucose 138 H (74-106) mg/dL Calcium 8.4 L (8.5-10.1) mg/dL Total Bilirubin 0.1 L (0.2-1.0) mg/dL AST 13 L (15-37) IU/L ALT 14 (14-63) IU/L Alkaline Phosphatase 73 (46-116) U/L Total Protein 6.3 L (6.4-8.2) g/dL Albumin 2.8 L (3.4-5.0) g/dL Globulin 3.5 (2.6-4.0) g/dL Albumin/Globulin Ratio 0.8 L (0.9-1.6) Lipase 169 (73-393) U/L Meds: Medications Generic Name Dose Route Start Last Admin Trade Name Freq PRN Reason Stop Dose Admin Sodium Chloride 10 ml 03/31/21 17:04 03/31/21 17:27 Sodium Chloride 0.9% 10 Ml Syringe FLUSH 10 ml ASDIRECTED PRN Administration Keep Vein Open Sodium Chloride 2.5 ml 03/31/21 17:04 03/31/21 17:27 Sodium Chloride 0.9% 2.5 Ml Syringe FLUSH 2.5 ml ASDIRECTED PRN Administration Keep Vein Open Discontinued Medications Generic Name Dose Route Start Last Admin Trade Name Sanjuq PRN Reason Stop Dose Admin Al Hydroxide/Mg Hydroxide 15 0 ml 03/31/21 17:04 03/31/21 17:27 ml/ Lidocaine HCl 5 ml PO 03/31/21 17:05 1 each ONETIME ONE Administration Sodium Chloride 1,000 mls @ 999 mls/hr 03/31/21 17:04 03/31/21 17:27 Normal Saline IV 03/31/21 18:04 999 mls/hr .Bolus ONE Administration Ondansetron HCl 4 mg 03/31/21 17:04 03/31/21 17:27 Ondansetron 4 Mg/2 Ml Sdv IVPUSH 03/31/21 17:05 4 mg ONETIME ONE Administration Departure - Departure Time of Disposition: 18:45 Disposition: Home, Self-Care 01 Condition: Good Clinical Impression: Gastritis Qualifiers: Gastritis type: unspecified gastritis Chronicity: chronic Gastritis bleeding: presence of bleeding unspecified Qualified Code(s): K29.50 - Unspecified chronic gastritis without bleeding GERD (gastroesophageal reflux disease) Qualifiers: Esophagitis presence: esophagitis presence not specified Qualified Code(s): K21.9 - Gastro-esophageal reflux disease without esophagitis Abdominal pain Qualifiers: Abdominal location: epigastric Qualified Code(s): R10.13 - Epigastric pain - Discharge Information Instructions: Food Choices for Gastroesophageal Reflux Disease, Adult, Gastritis, Adult, [id number], Abdominal Pain, Adult Referrals: Alyssa Zurita SCHEDULE ANNOUNCER [Primary Care Provider] - Forms: ED Department Discharge Additional Instructions: You were seen and evaluated in the ER today secondary to pain in your stomach. This is most likely secondary to gastritis and GERD. It appears that the GI cocktail is significantly improved the pain and discomfort that you are experiencing. Please continue taking your medication. We will add Bentyl as a medicine to help with your discomfort. You should also take [id number] Maalox 30 mL every 4-6 hours as needed if you have abdominal discomfort. Please maintain an extremely bland diet and avoid anything that will increase the level of acid in your stomach. You were given instructions regarding dietary discussions for GERD and gastritis. Please make an appointment to see your family doctor to see if they would like to reschedule you for a endoscopy. The following information is given to patients seen in the emergency department who are being discharged to home. This information is to outline your options for follow-up care. We provide all patients seen in our emergency department with a follow-up referral. The need for follow-up, as well as the timing and circumstances, are variable depending upon the specifics of your emergency department visit. If you don't have a primary care physician on staff, we will provide you with a referral. We always advise you to contact your personal physician following an emergency department visit to inform them of the circumstance of the visit and for follow-up with them and/or the need for any referrals to a consulting specialist. The emergency department will also refer you to a specialist when appropriate. This referral assures that you have the opportunity for follow-up care with a specialist. All of these measure are taken in an effort to provide you with optimal care, which includes your follow-up. Under all circumstances we always encourage you to contact your private physician who remains a resource for coordinating your care. When calling for follow-up care, please make the office aware that this follow-up is from your recent emergency room visit. If for any reason you are refused follow-up, please contact the [facility] Emergency Department at and asked to speak to the emergency department charge nurse. [facility] [address] [place] [address] [id number] [address] [address] Sepsis Event Note (ED) - Evaluation Sepsis Screening Result: No Definite Risk - Focused Exam Vital Signs: Vital Signs Temp Pulse Resp BP Pulse Ox 03/31/21 18:32 54 L 18 153/56 H 98 03/31/21 17:32 65 180/61 H 98 03/31/21 16:33 97.8 F 63 20 146/53 H 99 - My Orders Last 24 Hours: My Active Orders 03/31/21 17:04 Abdomen Pelvis wo Cont [CT] Stat UA W/DILCIA RFLX IF INDICATED [URIN] Stat Sodium Chloride 0.9% [Saline Flush] 10 ml FLUSH ASDIRECTED PRN Sodium Chloride 0.9% [Saline Flush] 2.5 ml FLUSH ASDIRECTED PRN Saline Lock Insert [OM.PC] Stat - Assessment/Plan Last 24 Hours: My Active Orders 03/31/21 17:04 Abdomen Pelvis wo Cont [CT] Stat UA W/DILCIA RFLX IF INDICATED [URIN] Stat Sodium Chloride 0.9% [Saline Flush] 10 ml FLUSH ASDIRECTED PRN Sodium Chloride 0.9% [Saline Flush] 2.5 ml FLUSH ASDIRECTED PRN Saline Lock Insert [OM.PC] Stat
--- NOTE | 2021-03-31 18:51 | CT ---
INDICATION: Abdominal pain that starts in the mid abdomen and wraps around the back, history of kidney stones TECHNIQUE: CT abdomen and pelvis without contrast. COMPARISON: CT abdomen and pelvis 02/02/2021 FINDINGS: There is similar appearing minimal bibasilar bronchiectasis. Lung bases are otherwise clear. Evaluation of the abdominal viscera is limited due to lack of IV contrast, however the liver, spleen, pancreas and adrenal glands are unremarkable. The gallbladder is surgically absent. The kidneys are negative for hydronephrosis or nephrolithiasis. There is a 1.9 cm right renal cyst which is similar to prior exam. There are no dilated loops of small bowel to suggest obstruction.The appendix is normal.There is no intraperitoneal free air or fluid. There are scattered colonic diverticuli without adjacent inflammatory change to suggest acute diverticulitis. There is scattered atherosclerotic calcification of the abdominal aorta and common iliacs. There tiny fat containing bilateral inguinal hernias. Moderate multilevel degenerative changes are present within the lower thoracic and lumbar spine. There are anterior and posterior osteophytes. Severe bilateral facet arthropathy is also present within the lower lumbar spine. IMPRESSION: 1. Negative for hydronephrosis or nephrolithiasis. 2. Moderate multilevel degenerative changes of the lower thoracic and lumbar spine. Please note that all CT scans at this facility use dose modulation, iterative reconstruction, and/or weight-based dosing when appropriate to reduce radiation dose to as low as reasonably achievable. Dictated by Sera John MD @ 03/31/2021 6:49:[address] Sera John @ Mar 31 2021 6:49PM
== END 2021-03-31 19:14 | disposition home or self-care (01) ==
LOC: MW.ED 16:25
DX: K29.50 Unspecified chronic gastritis without bleeding (principal); K21.9 Gastro-esophageal reflux disease without esophagitis; I10 Essential (primary) hypertension; Z79.899 Other long term (current) drug therapy; Z90.49 Acquired absence of other specified parts of digestive tract
CPT/HCPCS: 36415; 74176; 80053; 83690; 85025; 96374; 99284; A9270; J2405; J7030

== ENCOUNTER → 2021-11-28 | Emergency (ER) | payer MEDICARE, OTHER ==
[~2021-11-28] MED LIST changes: +Iopamidol 755 MG/ML 500 ML Multipack Bottle IVPUSH STA; +Ketorolac 30 MG/ML SDV IVPUSH ONE; -Ketorolac 30 MG/ML SDV ONE; -Lactated Ringers 1,000 ML IV SCH; -Lidocaine 2% 5 ML SDV ONE; -Midazolam 1 MG/ML 2 ML SDV ONE; -Ondansetron 4 MG/2 ML SDV ONE; -Propofol 200 MG/20 ML SDV ONE; -Rocuronium Bromide 50 MG/5 ML Syringe ONE; -Sodium Chloride 0.9% 10 ML SDV IV PRN; -Sodium Chloride 0.9% 10 ML Syringe FLUSH PRN; -Sodium Chloride 0.9% 2.5 ML Syringe FLUSH PRN; -Sodium Chloride 0.9% 20 ML ONE; -ceFAZolin 1 GM Vial ONE; -ceFAZolin 1 GM in Premix Bag 1 BAG IV ONE; -fentaNYL 250 MCG/5 ML SDV ONE; +fentaNYL 50 MCG/ML SDV IVPUSH ONE
[2021-11-28 17:40] LABS: BLOOD UREA NITROGEN,BUN 14 mg/dL (7.0-18.0); CARBON DIOXIDE,CO2 24.7 mmol/L (21.0-32.0); CHLORIDE,CL 102 mmol/L (98-107); GLUCOSE RANDOM 112 mg/dL (74-106); LIPASE 136 U/L (73-393); POTASSIUM,K 3.7 mmol/L (3.5-5.1); SODIUM,NA 139 mmol/L (136-145)
== END | disposition still patient (30) ==
LOC: MW.ED 16:11
DX: R10.13 Epigastric pain (principal); I10 Essential (primary) hypertension; K21.9 Gastro-esophageal reflux disease without esophagitis; Z79.899 Other long term (current) drug therapy; Z79.2 Long term (current) use of antibiotics
CPT/HCPCS: 36415; 74177; 80053; 81001; 83690; 85025; 96374; 96375; 99284; J1885; J3010; Q9967

== ENCOUNTER 2022-11-22 12:26 | Emergency (ER) | payer MEDICARE, OTHER ==
[2022-11-22] MEDS ORDERED: Sodium Chloride 0.9% 2.5 ML Syringe FLUSH PRN (12:58)
[2022-11-22] MEDS ORDERED: Sodium Chloride 0.9% 10 ML Syringe FLUSH PRN (12:58)
[2022-11-22] MEDS ORDERED: Sodium Chloride 0.9% 1,000 ML IV STA (12:59)
[2022-11-22] MEDS ORDERED: Morphine 2 MG/ML SYRINGE IVPUSH STA (12:59)
[2022-11-22 14:09] LABS: CARBON DIOXIDE,CO2 24.4 mmol/L (21.0-32.0); POTASSIUM,K 3.8 mmol/L (3.5-5.1)
[2022-11-22] MEDS ORDERED: Iopamidol 755 MG/ML 500 ML Multipack Bottle IVPUSH ONE (14:43)
== END 2022-11-22 17:07 | disposition home or self-care (01) ==
LOC: MW.ED 12:26
DX: R10.13 Epigastric pain (principal); I10 Essential (primary) hypertension; K21.9 Gastro-esophageal reflux disease without esophagitis; Z79.899 Other long term (current) drug therapy
CPT/HCPCS: 36415; 71275; 74174; 80053; 81001; 83690; 83735; 85025; 93005; 96361; 96374; 99284; J2270; J3490; J7030; Q9967

== ENCOUNTER 2023-12-27 05:41 | Emergency (ER) | payer MEDICARE, OTHER ==
[2023-12-27 06:05] LABS: BASOPHILS ABSOLUTE AUTO 0.07 K/uL (0.00-0.20); BASOPHILS PERCENT AUTO 0.4 % (0.0-1.0); EOSINOPHILS ABSOLUTE AUTO 0.14 K/uL (0.00-0.45); EOSINOPHILS PERCENT AUTO 0.9 % (0.0-6.0); HEMATOCRIT 44.4 % (37.0-47.0); HEMOGLOBIN 15.3 g/dL (12.0-16.0); IMMATURE GRAN ABSOLUTE AUTO 0.05 K/uL (0.00-0.05); IMMATURE GRAN PERCENT AUTO 0.3 % (0.0-0.4); LYMPHOCYTES ABSOLUTE AUTO 4.42 K/uL (1.00-4.80); LYMPHOCYTES PERCENT AUTO 27.4 % (24.0-44.0); MEAN CORPUSCULAR HEMOGLOBIN 30.8 pg (28.0-32.0); MEAN CORPUSCULAR HGB CONC 34.5 g/dL (32.0-36.0); MEAN CORPUSCULAR VOLUME 89.5 fL (83.0-99.0); MEAN PLATELET VOLUME 10.8 fL (9.4-12.3); MONOCYTES ABSOLUTE AUTO 0.86 K/uL (0.00-0.80); MONOCYTES PERCENT AUTO 5.3 % (0.0-8.0); NEUTROPHILS ABSOLUTE AUTO 10.61 K/uL (1.80-7.70); NEUTROPHILS PERCENT AUTO 65.7 % (41.0-71.0); PLATELET COUNT,PLT 283 K/uL (150-400); RED BLOOD CELL COUNT 4.96 M/uL (4.10-5.30); WHITE BLOOD CELL COUNT,WBC 16.15 K/uL (3.9-11.3)
[2023-12-27] MEDS: Alum Hydro/Mag Hydro/Simeth XS 15 ML, Lidocaine 2% 5 ML PO ONE (06:06)
[2023-12-27] MEDS: Ondansetron 4 MG/2 ML SDV IVPUSH ONE (06:06)
[2023-12-27] MEDS: Morphine 4 MG/ML Syringe IVPUSH ONE (06:06)
[2023-12-27] MEDS: Sodium Chloride 0.9% 10 ML Syringe FLUSH PRN (06:06)
[2023-12-27] MEDS: Famotidine 20 MG/2 ML SDV IVPUSH ONE (06:06)
[2023-12-27] MEDS: Sodium Chloride 0.9% 2.5 ML Syringe FLUSH PRN (06:06)
[2023-12-27 06:48] LABS: A/G RATIO 0.8 (0.9-1.6); ALBUMIN 3.3 g/dL (3.4-5.0); BILIRUBIN TOTAL 0.3 mg/dL (0.2-1.0); CALCIUM 9.2 mg/dL (8.5-10.1); CARBON DIOXIDE,CO2 24.4 mmol/L (21.0-32.0); CREATININE 0.8 mg/dL (0.6-1.0); EST CRCL DRUG DOSING (CG) 46.33 mL/min; POTASSIUM,K 3.4 mmol/L (3.5-5.1); PROTEIN TOTAL,TP 7.5 g/dL (6.4-8.2)
[2023-12-27] MEDS: Iopamidol 755 MG/ML 500 ML Multipack Bottle IVPUSH ONE (06:57)
[2023-12-27] MEDS: fentaNYL 100 MCG/2 ML SDV IVPUSH STA (07:28)
== END 2023-12-27 08:44 | disposition home or self-care (01) ==
LOC: MW.ED 05:41
DX: R10.13 Epigastric pain (principal); I10 Essential (primary) hypertension; Z75.8 Other problems related to medical facilities and other health care; Z90.49 Acquired absence of other specified parts of digestive tract; Z79.899 Other long term (current) drug therapy
CPT/HCPCS: 36415; 74177; 80053; 83690; 85025; 96374; 96375; 99284; A9270; J2270; J2405; J3010; J3490; Q9967

== ENCOUNTER 2024-02-08 20:23 | Emergency (ER) | payer MEDICARE ==
[2024-02-08] MEDS: Sucralfate Suspension 1 GM/10 ML Cup PO ONE (22:23)
[2024-02-08] MEDS: Sodium Chloride 0.9% 1,000 ML IV ONE (22:23)
[2024-02-08] MEDS: Ondansetron 4 MG/2 ML SDV IVPUSH ONE (22:23)
[2024-02-08] MEDS: Famotidine 20 MG/2 ML SDV IVPUSH ONE (22:23)
[2024-02-08] MEDS: Sodium Chloride 0.9% 10 ML Syringe FLUSH PRN (22:34)
[2024-02-08] MEDS: Sodium Chloride 0.9% 2.5 ML Syringe FLUSH PRN (22:34)
[2024-02-08 22:38] LABS: BASOPHILS ABSOLUTE AUTO 0.05 K/uL (0.00-0.20); BASOPHILS PERCENT AUTO 0.5 % (0.0-1.0); EOSINOPHILS ABSOLUTE AUTO 0.15 K/uL (0.00-0.45); EOSINOPHILS PERCENT AUTO 1.5 % (0.0-6.0); HEMATOCRIT 43.5 % (37.0-47.0); HEMOGLOBIN 15.1 g/dL (12.0-16.0); IMMATURE GRAN ABSOLUTE AUTO 0.02 K/uL (0.00-0.05); IMMATURE GRAN PERCENT AUTO 0.2 % (0.0-0.4); LYMPHOCYTES PERCENT AUTO 42.3 % (24.0-44.0); MEAN CORPUSCULAR HEMOGLOBIN 31.3 pg (28.0-32.0); MEAN CORPUSCULAR HGB CONC 34.7 g/dL (32.0-36.0); MEAN CORPUSCULAR VOLUME 90.1 fL (83.0-99.0); MEAN PLATELET VOLUME 11.1 fL (9.4-12.3); MONOCYTES ABSOLUTE AUTO 0.93 K/uL (0.00-0.80); MONOCYTES PERCENT AUTO 9.6 % (0.0-8.0); NEUTROPHILS ABSOLUTE AUTO 4.45 K/uL (1.80-7.70); NEUTROPHILS PERCENT AUTO 45.9 % (41.0-71.0); PLATELET COUNT,PLT 269 K/uL (150-400); RED BLOOD CELL COUNT 4.83 M/uL (4.10-5.30)
[2024-02-08 23:06] LABS: A/G RATIO 0.8 (0.9-1.6); ALBUMIN 3.2 g/dL (3.4-5.0); BILIRUBIN TOTAL 0.2 mg/dL (0.2-1.0); CALCIUM 9.2 mg/dL (8.5-10.1); CARBON DIOXIDE,CO2 25.7 mmol/L (21.0-32.0); CREATININE 0.8 mg/dL (0.6-1.0); EST CRCL DRUG DOSING (CG) 46.33 mL/min; POTASSIUM,K 3.7 mmol/L (3.5-5.1); PROTEIN TOTAL,TP 7.4 g/dL (6.4-8.2)
== END 2024-02-09 01:56 | disposition home or self-care (01) ==
LOC: MW.ED 20:23
DX: R10.13 Epigastric pain (principal); I10 Essential (primary) hypertension; Z90.49 Acquired absence of other specified parts of digestive tract; Z79.899 Other long term (current) drug therapy
CPT/HCPCS: 36415; 71046; 80053; 83690; 84484; 85025; 93005; 96374; 96375; 99284; A9270; J2405; J3490; J7030; 93010

== ENCOUNTER 2024-10-13 06:42 | Emergency (ER) | payer MEDICARE, OTHER ==
[2024-10-13] MEDS ORDERED: Sodium Chloride 0.9% 2.5 ML Syringe FLUSH PRN (07:12)
[2024-10-13] MEDS ORDERED: Sodium Chloride 0.9% 10 ML Syringe FLUSH PRN (07:12)
[2024-10-13 07:29] LABS: HEMATOCRIT 36.8 % (37.0-47.0); HEMOGLOBIN 12.1 g/dL (12.0-16.0); MEAN CORPUSCULAR HEMOGLOBIN 29.7 pg (28.0-32.0); MEAN CORPUSCULAR HGB CONC 32.9 g/dL (32.0-36.0); MEAN CORPUSCULAR VOLUME 90.2 fL (83.0-99.0); MEAN PLATELET VOLUME 10.1 fL (9.4-12.3); PLATELET COUNT,PLT 335 K/uL (150-400); RED BLOOD CELL COUNT 4.08 M/uL (4.10-5.30); WHITE BLOOD CELL COUNT,WBC 25.05 K/uL (3.9-11.3)
[2024-10-13] MEDS: Sodium Chloride 0.9% 1,000 ML IV STA ×2 (07:38→09:42)
[2024-10-13] MEDS: Ondansetron 4 MG/2 ML SDV IVPUSH ONE (07:39)
[2024-10-13 07:40] LABS: EOSINOPHILS ABSOLUTE MAN 0.75 K/uL (0.00-0.45); EOSINOPHILS PERCENT MAN 3 % (0-6); LYMPHOCYTES ABSOLUTE MAN 2.76 K/uL (1.00-4.80); LYMPHOCYTES PERCENT MAN 11 % (24-44); MONOCYTES ABSOLUTE MAN 1.25 K/uL (0.00-0.80); MONOCYTES PERCENT MAN 5 % (0-8); SEG NEUTROPHILS ABSOLUTE MAN 20.29 K/uL (1.80-7.70); SEG NEUTROPHILS PERCENT MAN 81 % (41-71)
[2024-10-13 07:55] LABS: A/G RATIO 0.9 (0.9-1.6); ALBUMIN 3.5 g/dL (3.4-5.0); BILIRUBIN TOTAL 0.3 mg/dL (0.2-1.0); CALCIUM 9.7 mg/dL (8.5-10.1); CARBON DIOXIDE,CO2 23.5 mmol/L (21.0-32.0); CREATININE 0.9 mg/dL (0.6-1.0); EST CRCL DRUG DOSING (CG) 40.58 mL/min; LACTIC ACID 1.8 mmol/L (0.4-2.0); POTASSIUM,K 4.4 mmol/L (3.5-5.1); PROTEIN TOTAL,TP 7.6 g/dL (6.4-8.2)
[2024-10-13] MEDS: Morphine 4 MG/ML Syringe IVPUSH ONE ×2 (08:14→09:49)
[2024-10-13] MEDS: Iopamidol 755 MG/ML 500 ML Multipack Bottle IVPUSH STA (08:51)
[2024-10-13] MEDS: Piperacillin/Tazobactam 4.5 GM in Sodium Chloride 0.9% 100 ML IV ONE (09:49)
[2024-10-13 11:26] LABS: APPEARANCE,URINE CLEAR; BILIRUBIN,URINE NEGATIVE (NEGATIVE); COLOR,URINE YELLOW; GLUCOSE,URINE NEGATIVE (NEGATIVE); KETONES,URINE NEGATIVE (NEGATIVE); LEUKOCYTE ESTERASE,URINE NEGATIVE (NEGATIVE); NITRITE,URINE NEGATIVE (NEGATIVE); OCCULT BLOOD,URINE TRACE-INTACT (NEGATIVE); PH,URINE 5.5 (5.0-8.0); PROTEIN,URINE NEGATIVE (NEGATIVE); UROBILINOGEN,URINE 0.2 EU/dL (<2.0)
[2024-10-13 12:31] LABS: BACTERIA,URINE FEW (NEGATIVE); EPITHELIAL CELLS,URINE FEW (NONE-FEW); MUCUS,URINE LIGHT (NONE-MOD); RBC,URINE NONE SEEN (0-2/HPF); WBC,URINE 0-1 (0-5/HPF)
== END 2024-10-13 12:39 | disposition home or self-care (01) ==
LOC: MW.ED 06:42
DX: I95.9 Hypotension, unspecified (principal); D72.829 Elevated white blood cell count, unspecified; R10.13 Epigastric pain; I10 Essential (primary) hypertension; J44.9 Chronic obstructive pulmonary disease, unspecified; Z79.899 Other long term (current) drug therapy; Z90.49 Acquired absence of other specified parts of digestive tract
CPT/HCPCS: 36415; 74177; 80053; 81001; 83605; 83690; 84484; 85025; 87040; 93005; 96361; 96365; 96375; 96376; 99284; J2270; J2405; J2543; J3490; J7030; Q9967; 93010

== ENCOUNTER 2025-04-04 07:12 | Emergency (ER) | payer MEDICARE, OTHER | END 2025-04-04 07:58 | disposition home or self-care (01) | LOC: MW.ED 07:12 | DX: R21 Rash and other nonspecific skin eruption (principal); I10 Essential (primary) hypertension; K21.9 Gastro-esophageal reflux disease without esophagitis; Z75.3 Unavailability and inaccessibility of health-care facilities; Z79.899 Other long term (current) drug therapy; Z90.49 Acquired absence of other specified parts of digestive tract | CPT/HCPCS: 99282; A9270 ==

== ENCOUNTER 2025-08-04 22:32 | Emergency (ER) | payer MEDICARE ==
[2025-08-04] MEDS ORDERED: Sodium Chloride 0.9% 2.5 ML Syringe FLUSH PRN (22:44)
[2025-08-04] MEDS ORDERED: Sodium Chloride 0.9% 10 ML Syringe FLUSH PRN (22:44)
[2025-08-04 22:50] LABS: MEAN PLATELET VOLUME 10.1 fL (9.4-12.3); NRBC ABSOLUTE 0.00 K/uL (0.00-0.02); NRBC PERCENT 0.0 /100WBC (0.0-0.2); PLATELET COUNT,PLT 291 K/uL (150-400); RED BLOOD CELL COUNT 4.20 M/uL (4.10-5.30); WHITE BLOOD CELL COUNT,WBC 19.12 K/uL (3.9-11.3)
[2025-08-04] MEDS: fentaNYL 50 MCG/ML SDV IVPUSH ONE (22:58)
[2025-08-04] MEDS: Ondansetron 4 MG/2 ML SDV IVPUSH ONE ×2 (22:58→23:55)
[2025-08-04 23:20] LABS: A/G RATIO 0.9 (0.9-1.6); ALANINE AMINOTRANSFERASE,ALT 42.0 IU/L (14-63); ASPARTATE AMNIOTRANSFERASE,AST 31.0 IU/L (15-37); BILIRUBIN TOTAL 0.2 mg/dL (0.2-1.0); BLOOD UREA NITROGEN,BUN 16.0 mg/dL (7.0-18.0); CARBON DIOXIDE,CO2 23.0 mmol/L (21.0-32.0); CHLORIDE,CL 104.0 mmol/L (98-107); CREATININE 0.8 mg/dL (0.6-1.0); EST CRCL DRUG DOSING (CG) 44.99 mL/min; GLUCOSE RANDOM 124.0 mg/dL (74-106); POTASSIUM,K 3.5 mmol/L (3.5-5.1); PRO B-TYPE NATRIUR PEPT,BNPPRO 266.0 pg/mL (0-125); PROTEIN TOTAL,TP 7.9 g/dL (6.4-8.2); SODIUM,NA 138.0 mmol/L (136-145)
[2025-08-04 23:22] LABS: ESTIMATED GFR 78.0 mL/min (>60)
[2025-08-04 23:38] LABS: BAND ABSOLUTE MAN 0.57; BAND PERCENT MAN 3 %; LYMPHOCYTES ABSOLUTE MAN 7.84 K/uL (1.00-4.80); LYMPHOCYTES PERCENT MAN 41 % (24-44); METAMYELOCYTE ABSOLUTE MAN 0.19; METAMYELOCYTE PERCENT MAN 1 %; MONOCYTES ABSOLUTE MAN 0.96 K/uL (0.00-0.80); MONOCYTES PERCENT MAN 5 % (0-8); SEG NEUTROPHILS ABSOLUTE MAN 9.56 K/uL (1.80-7.70); SEG NEUTROPHILS PERCENT MAN 50 % (41-71)
[2025-08-05] MEDS: Iopamidol 755 MG/ML 500 ML Multipack Bottle IVPUSH ONE (00:13)
[2025-08-05 03:55] LABS: APPEARANCE,URINE CLEAR; GLUCOSE,URINE NEGATIVE (NEGATIVE); OCCULT BLOOD,URINE TRACE-INTACT (NEGATIVE)
[2025-08-05 04:08] LABS: EPITHELIAL CELLS,URINE OCCASIONAL (NONE-FEW)
== END 2025-08-05 04:09 | disposition home or self-care (01) ==
LOC: MW.ED 22:32
DX: K42.9 Umbilical hernia without obstruction or gangrene (principal); E86.0 Dehydration; I10 Essential (primary) hypertension; J44.9 Chronic obstructive pulmonary disease, unspecified; K21.9 Gastro-esophageal reflux disease without esophagitis; Z90.49 Acquired absence of other specified parts of digestive tract; Z79.899 Other long term (current) drug therapy; Z75.3 Unavailability and inaccessibility of health-care facilities
CPT/HCPCS: 36415; 71045; 74177; 80053; 81001; 83690; 83880; 84484; 85025; 93005; 96361; 96372; 96374; 96375; 96376; 99284; J2270; J2405; J2765; J3010; J7030; Q9967